=== PATIENT | male | born 1950 | race Caucasian/White ===

== ENCOUNTER 2018-09-09 12:55 | Emergency (ER) | payer MEDICARE, OTHER ==
[~2018-09-09] VITALS: Ht 182.9 cm; Wt 88.5 kg
[2018-09-09] MEDS ORDERED: DONNATAL 5ml ORAL Elix (BELLADONNA ALK-PHENOBARB) PO ONE (14:45)
[2018-09-09] MEDS ORDERED: ALUM & MAG HYDROX-SIMETH LIQ(MAALOX) 30 ML PO ONE (14:45)
[2018-09-09] MEDS ORDERED: LIDOCAINE VISCOUS 2% 15ML UD PO ONE (14:45)
[2018-09-09 14:49] LABS: Basophils # (auto) 0 uL; Eosinophils # (auto) 0.3 uL; Hemoglobin 10.1 g/dL (13.5-17.5); Lymphocytes # (auto) 0.8 uL; Monocytes % (auto) 8.4 % (0.0-12.0); Nucleated Red Blood Cells % 0.1 %
[2018-09-09 14:51] LABS: Basophils % (auto) 0.4 % (0.0-2.0); Eosinophils % (auto) 3.4 % (0.0-7.0); Lymphocytes % (auto) 10.9 % (10.0-50.0); Mean Corpuscular Hemoglobin 40.1 pg (28.0-32.0); Mean Corpuscular Hgb Conc. 34.9 g/dL (32.0-36.0); Mean Corpuscular Volume 114.7 fL (80.0-100.0); Monocytes # (auto) 0.6 uL; Neutrophils # (auto) 5.9 uL; Neutrophils % (auto) 76.9 % (37.0-80.0); Platelet Count (auto) 174 10^3/uL (140-450); Red Blood Cells 2.53 10^6/uL (4.5-5.90); Red Cell Distribution Width 14.6 % (11.8-14.3); White Blood Cell 7.7 10^3/uL (4.4-10.8)
[2018-09-09 15:07] LABS: Alanine Aminotransferase 38 U/L (16-61); Albumin 2.7 g/dL (3.4-5.0); Anion Gap 9 (5-15); Aspartate Aminotransferase 69 U/L (15-37); BUN/Creatinine Ratio 21.6; Blood Urea Nitrogen 42 mg/dL (7-18); Calcium 7.8 mg/dL (8.5-10.1); Carbon Dioxide 22 mmol/L (21-32); Chloride 102 mmol/L (98-107); GFR African American 45 mL/min; GFR Non-African American 37 mL/min; Glucose 111 mg/dL (74-106); Potassium 4.5 mmol/L (3.5-5.1); Sodium 133 mmol/L (136-145)
[2018-09-09 15:12] LABS: Alkaline Phosphatase 207 U/L (45-117); Total Protein 6.9 g/dL (6.4-8.2)
[2018-09-09 16:36] VITALS: BP 130/77
== END 2018-09-09 17:11 | disposition home or self-care (01) ==
LOC: ER 12:55 → EDBD 12:55 → ER 17:11
DX: K74.60 Unspecified cirrhosis of liver (principal); R07.89 Other chest pain; F17.210 Nicotine dependence, cigarettes, uncomplicated
CPT/HCPCS: 36415; 74176; 80053; 83880; 84484; 85025; 93005

== ENCOUNTER 2019-07-10 18:05 | Inpatient (IN) | payer MEDICARE, MEDICAID ==
[~2019-07-10] VITALS: Ht 182.9 cm; Wt 88.0 kg
[2019-07-10 19:07] LABS: Basophils # (auto) 0.1 uL; Basophils % (auto) 2.1 % (0.0-2.0); Eosinophils # (auto) 0.5 uL; Eosinophils % (auto) 10.7 % (0.0-7.0); Hematocrit 27.7 % (41.0-53.0); Hemoglobin 9.8 g/dL (13.5-17.5); Lymphocytes # (auto) 0.9 uL; Lymphocytes % (auto) 18.7 % (10.0-50.0); Mean Corpuscular Hemoglobin 38.2 pg (28.0-32.0); Mean Corpuscular Hgb Conc. 35.5 g/dL (32.0-36.0); Mean Corpuscular Volume 107.5 fL (80.0-100.0); Monocytes # (auto) 0.6 uL; Monocytes % (auto) 12.3 % (0.0-12.0); Neutrophils # (auto) 2.7 uL; Neutrophils % (auto) 56.2 % (37.0-80.0); Platelet Count (auto) 169 10^3/uL (140-450); Red Blood Cells 2.58 10^6/uL (4.5-5.90); Red Cell Distribution Width 13.2 % (11.8-14.3); White Blood Cell 4.8 10^3/uL (4.4-10.8)
[2019-07-10 19:23] LABS: Albumin 2.7 g/dL (3.4-5.0); BUN/Creatinine Ratio 16.5; Calcium 7.8 mg/dL (8.5-10.1); Magnesium 1.7 mg/dL (1.6-2.6); Potassium 3.3 mmol/L (3.5-5.1)
[2019-07-10 19:24] LABS: INR 1.17 (0.9-1.15); Partial Thromboplastin Time 26.2 sec (23.64-32.05)
[2019-07-10 19:31] LABS: Bilirubin, Total 1.2 mg/dL (0.2-1.0); Total Protein 6.5 g/dL (6.4-8.2)
[2019-07-10] MEDS ORDERED: ASPirin 325 MG TAB PO ONE (20:45)
[2019-07-10] MEDS ORDERED: ATORVASTATIN 20 MG TAB PO ONE (21:30)
[2019-07-10] MEDS ORDERED: ALBUTEROL SULF 2.5 MG/0.5ML(0.5%) NEB SOLN NEB PRN (21:30)
[2019-07-10] MEDS ORDERED: ONDANSETRON HCL 4 MG/2 ML VIAL IV PRN (21:30)
[2019-07-10] MEDS ORDERED: IOHEXOL 350 MG/ML 100ML IJ ONE ×2 (21:37→21:41)
[2019-07-10 21:47] VITALS: BP 149/96
--- NOTE | 2019-07-10 21:57 | NUR ---
Respiratory note: NO PRN TX GIVEN AT THIS TIME, NOT INDICATED. NO SOB NOTED. SPO2 95% ON RA, HR 73, RR 16.
[2019-07-10] MEDS ORDERED: MORPHINE SULF INJ 2 MG/ML SYRINGE 1ML IV PRN (22:00)
[2019-07-10] MEDS ORDERED: NITROGLYCERIN 0.4 MG SL TAB SL PRN (22:00)
[2019-07-10] MEDS ORDERED: POTASSIUM CHL 20 Meq TABLET PO SCH (22:00)
[2019-07-10] MEDS ORDERED: FUROSEMIDE 20 MG/2 ML VIAL IV SCH (22:00)
[2019-07-10] MEDS: ATORVASTATIN 20 MG TAB PO SCH (23:24)
[2019-07-10] MEDS: CARVEDILOL 3.125 MG TAB PO SCH (23:24)
[2019-07-10] MEDS: FAMOTIDINE 20 MG TAB PO SCH (23:25)
--- NOTE | 2019-07-10 23:42 | NUR ---
Telemetry admit from ER AIME ABDI admitted to Telemetry unit after SBAR received. Patient oriented to Bola solomon RN, west unit, 284 room, B bed, and unit policies regarding patient care and visiting hours. Patient now on continuous telemetry monitoring, tele box #72 and telemetry reading on arrival to unit is sinus rhythm with BBB. Patient placed on bedside oxygen, weighed by bedscale and encouraged to call if they need something. All questions and concerns addressed, patient verbalized understanding.
--- NOTE | 2019-07-10 23:44 | NUR ---
Called lab to confirm troponin lab draw. confirmed.
[2019-07-11] MEDS ORDERED: METO25TA62 PO (00:04)
[2019-07-11] MEDS ORDERED: NAP500T PO (00:04)
[2019-07-11] MEDS ORDERED: ASPI81CH59 PO (00:04)
[2019-07-11] MEDS ORDERED: PRAV20TA3 PO (00:04)
[2019-07-11] MEDS ORDERED: HYDR50TA15 PO (00:04)
--- NOTE | 2019-07-11 00:49 | NUR ---
Patient refused to have bed alarm on. Educated Geovanny on the importance of the bed alarm, and fall precautions. Also educated the risks of not having the bed alarm on. Geovanny verbally acknowledge education given and still refused to have bed alarm on. Will continue to monitor patient.
[2019-07-11 03:50] VITALS: BP 151/87
[2019-07-11 05:00] VITALS: BP 133/74
[2019-07-11 06:24] LABS: Albumin 2.7 g/dL (3.4-5.0); Calcium 8.1 mg/dL (8.5-10.1); Potassium 3.7 mmol/L (3.5-5.1)
[2019-07-11 06:30] LABS: BUN/Creatinine Ratio 15.7; Bilirubin, Total 1.5 mg/dL (0.2-1.0); Total Protein 6.6 g/dL (6.4-8.2)
[2019-07-11 06:31] LABS: Basophils # (auto) 0.1 uL; Basophils % (auto) 1.6 % (0.0-2.0); Eosinophils # (auto) 0.5 uL; Eosinophils % (auto) 11.2 % (0.0-7.0); Hematocrit 27.6 % (41.0-53.0); Hemoglobin 9.9 g/dL (13.5-17.5); Lymphocytes # (auto) 1.1 uL; Lymphocytes % (auto) 23.8 % (10.0-50.0); Mean Corpuscular Hemoglobin 37.9 pg (28.0-32.0); Mean Corpuscular Hgb Conc. 35.8 g/dL (32.0-36.0); Mean Corpuscular Volume 105.9 fL (80.0-100.0); Monocytes # (auto) 0.5 uL; Monocytes % (auto) 12.2 % (0.0-12.0); Neutrophils # (auto) 2.3 uL; Neutrophils % (auto) 51.2 % (37.0-80.0); Nucleated Red Blood Cells % 0.2 %; Platelet Count (auto) 173 10^3/uL (140-450); Red Blood Cells 2.61 10^6/uL (4.5-5.90); Red Cell Distribution Width 13.3 % (11.8-14.3); White Blood Cell 4.5 10^3/uL (4.4-10.8)
[2019-07-11 06:35] LABS: Cholesterol 104 mg/dL (< 200); HDL Cholesterol 21 mg/dL (40-59); LDL Cholesterol 72 mg/dL (< 100); Triglycerides 107 mg/dL (< 150)
--- NOTE | 2019-07-11 07:30 | NUR ---
Opening Shift Note Assumed care of patient, awake and alert. No S/S of distress/SOB or pain. Instructed on POC and to call for assist PRN, will continue to monitor for changes Q1hr and PRN.
[2019-07-11 08:44] VITALS: BP 146/92
--- NOTE | 2019-07-11 09:26 | NUR ---
PT ASSESSED FOR PRN HHN TX. PT IS ON ROOM AIR, SPO2 92%, HR 77, RR18. NO S/S OF RESPIRATORY DISTRESS. PT AWARE TO HAVE RT PAGE DIF TX NEEDED. WILL CONTINUE TO MONITOR.
[2019-07-11] MEDS: FAMOTIDINE 20 MG TAB PO SCH ×2 (09:44→22:11)
[2019-07-11] MEDS: ASPirin 81 mg TAB PO SCH (09:44)
[2019-07-11] MEDS: FUROSEMIDE 40 MG TAB PO SCH (09:45)
[2019-07-11] MEDS: CARVEDILOL 3.125 MG TAB PO SCH ×2 (09:45→22:11)
[2019-07-11 12:44] VITALS: BP 148/79
--- NOTE | 2019-07-11 14:34 | NUR ---
DR LUNA IS AWARE OF PT'S FEW BEATS OF P WAVES ONLY.
--- NOTE | 2019-07-11 16:00 | NUR ---
PRE POST BEDSIDE SPIROMETRY DONE. DR DONOVAN PRESENTED WITH RESULTS. RESULTS ALSO IN CHART.
[2019-07-11 17:00] VITALS: BP 136/92
[2019-07-11] MEDS: ALBUTEROL SULF 2.5 MG/0.5ML(0.5%) NEB SOLN NEB SCH ×2 (19:04→23:33)
--- NOTE | 2019-07-11 19:31 | NUR ---
REPORT GIVEN TO NOC RN. Patient awake and aleRT. No S/S of distress/SOB or pain. PT IS AWARE OF NPO AT MIDNIGHT ORDER. I.S. AT BEDSIDE.
[2019-07-11 22:00] VITALS: BP 143/92
[2019-07-11] MEDS: ATORVASTATIN 20 MG TAB PO SCH (22:11)
[2019-07-11] MEDS: predniSONE 20 MG TAB PO SCH (22:11)
[2019-07-12] MEDS: TEMAZEPAM 15 MG CAP PO PRN (00:26)
[2019-07-12 05:19] VITALS: BP 139/86
[2019-07-12] MEDS ORDERED: SODIUM CHLORIDE 0.9 % NEB SOLN 3ML NEB ONE ×2 (05:27→12:49)
[2019-07-12] MEDS: ALBUTEROL SULF 2.5 MG/0.5ML(0.5%) NEB SOLN NEB SCH ×3 (06:41→19:40)
--- NOTE | 2019-07-12 07:30 | NUR ---
Opening Shift Note Assuming care of patient at this time. Patient is awake and alert. Patient denies pain. Patient shows no signs or symptoms of distress or shortness of breath. Patient is currently sitting in a chair at the bedside of his roommate. Instructed patient on the plan of care for today and to call for assistance as needed. Patient aware of upcoming procedures today and NPO status. Call light at bedside. Will continue to round hourly and as needed.
--- NOTE | 2019-07-12 07:30 | NUR ---
CLOSING SHIFT NOTE Endorsed care of patient to day shift, CAROL Valdez.
[2019-07-12 08:00] VITALS: BP 150/80
--- NOTE | 2019-07-12 10:23 | NUR ---
Call to Nuclear Medicine Patient is downstairs for procedure. One IV is fine per Avinash. Awaiting patient's return.
[2019-07-12] MEDS: ASPirin 81 mg TAB PO SCH (12:10)
[2019-07-12] MEDS: FUROSEMIDE 40 MG TAB PO SCH (12:11)
[2019-07-12] MEDS: predniSONE 20 MG TAB PO SCH ×2 (12:11→21:46)
[2019-07-12] MEDS: FAMOTIDINE 20 MG TAB PO SCH ×2 (12:11→21:46)
[2019-07-12] MEDS: CARVEDILOL 3.125 MG TAB PO SCH ×2 (12:14→21:51)
[2019-07-12 13:00] VITALS: BP 158/94
--- NOTE | 2019-07-12 15:30 | NUR ---
Nuclear Medicine Patient has had first part of stress test and will have second part tomorrow. No distress noted.
[2019-07-12 16:00] VITALS: BP 157/90
--- NOTE | 2019-07-12 19:03 | NUR ---
Closing Shift Note Patient is resting in bed. Patient shows no signs or symptoms of distress. Will endorse care to the mine shifter RN.
--- NOTE | 2019-07-12 19:43 | NUR ---
RT NOTE PT WAS SEEN BY RT FOR HHN TX. PT TOLERATES WELL VIA MOUTHPIECE. NO ADVERSE REACTION NOTED. CONT ORDERED Addendum: 07/12/19 at 1945 by Scarlett Mcmanus RT Amended: Links added.
[2019-07-12] MEDS: ATORVASTATIN 20 MG TAB PO SCH (21:46)
[2019-07-12 22:00] VITALS: BP 138/80
--- NOTE | 2019-07-12 23:30 | NUR ---
Rounds Patient awake and alert. No S/S of distress/SOB or pain. Will continue to monitor changes q1hr and PRN.
[2019-07-13] MEDS: ALBUTEROL SULF 2.5 MG/0.5ML(0.5%) NEB SOLN NEB SCH ×4 (00:14→20:14)
--- NOTE | 2019-07-13 00:24 | NUR ---
RT NOTE PT WAS SEEN BY RT FOR HHN TX. PT TOLERATES WELL VIA MOUTHPIECE. NO ADVERSE REACTION NOTED. CONT ORDERED Addendum: 07/13/19 at 0025 by Scarlett Mcmanus RT Amended: Links added.
[2019-07-13] MEDS: TEMAZEPAM 15 MG CAP PO PRN (00:25)
--- NOTE | 2019-07-13 03:30 | NUR ---
Rounds Patient sleeping. No S/S of distress/SOB or pain. Will continue to monitor changes q1hr and PRN.
[2019-07-13 05:00] VITALS: BP 134/82
--- NOTE | 2019-07-13 07:30 | NUR ---
SHIFT CLOSING NOTE. ENDORSED CARE OF PATIENT TO DAY SHIFT, CAROL ADAMS.
--- NOTE | 2019-07-13 07:30 | NUR ---
Opening Shift Note Assuming care of patient at this time. Patient is awake and alert. Patient denies pain. Patient shows no signs or symptoms of distress or shortness of breath. Patient is resting in bed. Bed is locked and lowered, with side rails up x2. Instructed patient on the plan of care for today and to call for assistance as needed. Patient aware of upcoming stress test (pt. 2) today and NPO status. Call light at bedside. Will continue to round hourly and as needed.
--- NOTE | 2019-07-13 07:30 | NUR ---
Closing Shift Note Patient is resting in bed. Patient shows no signs or symptoms of distress. Will endorse care to the mine shifter CAROL. Addendum: 07/13/19 at 1918 by BRYAN FELIX RN RN This note was timed incorrectly. Closing note for 1918.
[2019-07-13] MEDS ORDERED: ADENOSINE 75 MG in GIVE UN-DILUTED 0 ML IV STA (08:22)
[2019-07-13 09:00] VITALS: BP 143/84
[2019-07-13] MEDS ORDERED: FURO40TA4 PO (11:02)
[2019-07-13] MEDS ORDERED: CAR3125T PO (11:02)
[2019-07-13] MEDS ORDERED: ATOR20TA50 PO (11:02)
[2019-07-13] MEDS ORDERED: LISI-646 PO (11:02)
[2019-07-13] MEDS ORDERED: ALBUAER3 IN (11:03)
[2019-07-13] MEDS: predniSONE 20 MG TAB PO SCH ×2 (11:10→22:17)
[2019-07-13] MEDS: ASPirin 81 mg TAB PO SCH (11:10)
[2019-07-13] MEDS: FAMOTIDINE 20 MG TAB PO SCH ×2 (11:11→22:16)
[2019-07-13] MEDS: FUROSEMIDE 40 MG TAB PO SCH (11:11)
[2019-07-13] MEDS: CARVEDILOL 3.125 MG TAB PO SCH ×3 (11:12→22:20)
[2019-07-13 13:00] VITALS: BP 139/74
--- NOTE | 2019-07-13 16:20 | NUR ---
Page to Dr. Quintana Page to Dr. Quintana regarding stress test results. Awaiting callback.
--- NOTE | 2019-07-13 16:25 | NUR ---
Call back from Dr. Dr. Quintana called at this time. Notified of stress tests results. wants to hold discharge. Will notify patient.
[2019-07-13 17:00] VITALS: BP 137/93
--- NOTE | 2019-07-13 17:45 | NUR ---
Re: Discharge Cancelled Per Dr. Quintana, discharge will be held. Per Dr. Quintana notes, heart cath on tuesday.
--- NOTE | 2019-07-13 18:15 | NUR ---
Pulmonary Consult Dr. Hudson at bedside at this time. All questions and concerns addressed with patient and this RN. Patient is clear for planned procedure on Tuesday from a pulmonary standpoint.
--- NOTE | 2019-07-13 19:18 | NUR ---
Closing Shift Note Patient is resting in bed. Patient shows no signs or symptoms of distress. Will endorse care to the night shift supervisor RN.
[2019-07-13 22:00] VITALS: BP 138/83
[2019-07-13] MEDS: ATORVASTATIN 20 MG TAB PO SCH (22:16)
[2019-07-13 22:31] VITALS: BP 138/83
--- NOTE | 2019-07-14 | NUR ---
Rounds Patient awake and alert. No S/S of distress/SOB or pain. Will continue to monitor changes q1hr and PRN.
[2019-07-14] MEDS: ALBUTEROL SULF 2.5 MG/0.5ML(0.5%) NEB SOLN NEB SCH ×5 (00:03→23:47)
[2019-07-14] MEDS: TEMAZEPAM 15 MG CAP PO PRN (00:13)
--- NOTE | 2019-07-14 04:16 | NUR ---
Rounds Patient sleeping. No S/S of distress/SOB or pain. Will continue to monitor changes q1hr and PRN.
[2019-07-14 05:35] VITALS: BP 15/92
--- NOTE | 2019-07-14 07:15 | NUR ---
Opening Shift Note Report received and assumed care of patient, awake and alert. No S/S of distress/SOB or pain. Instructed on POC,Nursing routines, call light within reach patient reminded instructed to call for assistance, PRN,patient verbalized understanding, will continue to monitor for changes Q1hr and PRN.
--- NOTE | 2019-07-14 07:30 | NUR ---
SHIFT CLOSING NOTE. ENDORSED CARE OF PATIENT TO DAY SHIFT, CAROL HENDERSON.
[2019-07-14 09:05] VITALS: BP 160/94
[2019-07-14] MEDS: FAMOTIDINE 20 MG TAB PO SCH ×2 (10:23→22:16)
[2019-07-14] MEDS: predniSONE 20 MG TAB PO SCH ×2 (10:23→22:15)
[2019-07-14] MEDS: ASPirin 81 mg TAB PO SCH (10:23)
[2019-07-14] MEDS: CARVEDILOL 3.125 MG TAB PO SCH ×2 (10:24→22:00)
[2019-07-14] MEDS: FUROSEMIDE 40 MG TAB PO SCH (10:25)
--- NOTE | 2019-07-14 10:40 | NUR ---
MD VISIT DR. EDGE HERE TO SEE AND EXAMINED PATIENT.
[2019-07-14 13:10] VITALS: BP 154/92
[2019-07-14 16:33] VITALS: BP 162/99
[2019-07-14] MEDS: cloNIDine HCL 0.1 MG TAB PO PRN (17:25)
--- NOTE | 2019-07-14 19:00 | NUR ---
OPENING NOTE Received report from day shift RN. Patient is A&O X's 4 with no s/s of distress. Patient denies SOB or chest pain. Educated patient on POC and to use call light when in need of assistance. Patient verbalized understanding. Bed is in lowest/locked position with side rails up X's 2 and call light is within reach of patient. Will continue care
[2019-07-14] MEDS: ATORVASTATIN 20 MG TAB PO SCH (22:15)
[2019-07-14 22:17] VITALS: BP 129/78
[2019-07-15] MEDS: TEMAZEPAM 15 MG CAP PO PRN ×2 (00:05→23:54)
[2019-07-15 05:32] VITALS: BP 136/74
[2019-07-15] MEDS: ALBUTEROL SULF 2.5 MG/0.5ML(0.5%) NEB SOLN NEB SCH ×3 (06:42→18:29)
[2019-07-15] MEDS ORDERED: OMNIPAQUE ORAL SOLN 500ml 12mg/ml PO ONE ×2 (07:23→13:10)
--- NOTE | 2019-07-15 08:00 | NUR ---
Opening Shift Note Assumed care of patient, awake, alert and oriented X4. No S/S of distress/SOB or pain. Tele# 72, sinus rhythm @ 66 bpm. IV to left antecubital leaking, removed with clean technique, angio cath intact. Right wrist 22 gauge, patent and saline locked. Instructed on POC and to call for assist PRN, verbalized understanding. Bed locked, in lowest position, call light within reach, will continue to monitor for changes Q1hr and PRN.
[2019-07-15 08:09] LABS: % Iron Saturation 15.8 % (20-55)
[2019-07-15 09:00] VITALS: BP 168/97
[2019-07-15] MEDS ORDERED: IOHEXOL 300 MG/ML 100ML BOTTLE IJ ONE ×2 (09:07→09:52)
[2019-07-15] MEDS: cloNIDine HCL 0.1 MG TAB PO PRN (09:08)
--- NOTE | 2019-07-15 09:35 | NUR ---
Patient taken to radiology for abdominal/pelvic CT via wheelchair, no distress noted.
--- NOTE | 2019-07-15 09:40 | NUR ---
IV removal IV DC'd to right wrist with clean sterile technique, catheter fully intact. Pressure dressing applied to site. Patient tolerated well. Warm compress in place.
--- NOTE | 2019-07-15 09:45 | NUR ---
Patient returned from radiology via wheelchair. Per flavio Hutchins, patient's right wrist IV was patent when patient taken down but when IV contrast was administered, the IV site began to swell. Per Cuong, contrast extravasation protocol began. Upon assessment of right wrist, site is swollen with good circulation. Warm compress in place and patient educated on signs and symptoms, verbalized understanding.
--- NOTE | 2019-07-15 10:15 | NUR ---
ROUNDS Dr Griffin at bedside for rounds. Informed patient has no IV access at this time and CT was not completed due to contrast extravasation to right wrist. Informed patient is a hard stick. New orders received for a midline. Informed Jb, house manager, verbalized he has already called the on-call PICC nurse. Updated patient on plan of care, verbalized understanding.
--- NOTE | 2019-07-15 12:10 | NUR ---
MIDLINE Midline nurse at bedside for midline placement.
--- NOTE | 2019-07-15 12:25 | NUR ---
Midline Placement: Patient educated on need for midline placement. All risks and benefits explained and all questions and concerns addresses prior to procedure. 18g/10cm midline inserted via left basilic vein using Ultrasound. Sterile technique utilized. Blood return obtained from the lumen and flushed easily with NS using proper technique. Midline secured with saline lock; biodisc and occlusive dressing applied. Primary RN notified.
--- NOTE | 2019-07-15 12:25 | NUR ---
MIDLINE Midline placed to right upper, inner arm by midline nurse.
[2019-07-15 13:02] VITALS: BP 151/85
[2019-07-15] MEDS: ASPirin 81 mg TAB PO SCH (13:54)
[2019-07-15] MEDS: FAMOTIDINE 20 MG TAB PO SCH ×2 (13:54→21:43)
[2019-07-15] MEDS: predniSONE 20 MG TAB PO SCH ×2 (13:54→21:43)
[2019-07-15] MEDS: SODIUM CHLORIDE 0.9% 1,000 ML IV SCH ×2 (13:55→18:14)
[2019-07-15] MEDS: FUROSEMIDE 40 MG TAB PO SCH (14:00)
[2019-07-15] MEDS: CARVEDILOL 3.125 MG TAB PO SCH ×2 (14:01→21:43)
[2019-07-15 16:49] VITALS: BP 150/84
[2019-07-15] MEDS: FERROUS SULFATE 325 MG TAB PO SCH (17:54)
--- NOTE | 2019-07-15 19:01 | NUR ---
Care endorsed to CAROL Dunaway, night nurse.
--- NOTE | 2019-07-15 19:10 | NUR ---
OPENING NOTE Received report from day shift RN. Patient is A&O X's 4 with no s/s of distress. Educated patient on POC and instructed patient not to eat or drink anything after midnight for the left heart cath tomorrow and to use call light when in need of assistance. Patient verbalized understanding. Patient's right hand still remains swollen with good circulation and adequate perfusion. Patient reports no numbness/tingling or pain. Educated patient on s/s and to keep hand elevated. Provided patient with warm and cold compresses for the hand. Bed is in lowest/locked position with side rails up X's 2 and call light is within reach of patient. NS is being infused at 125ml/hr via right upper arm midline. Will continue care.
[2019-07-15] MEDS: ATORVASTATIN 20 MG TAB PO SCH (21:43)
[2019-07-16] MEDS: ALBUTEROL SULF 2.5 MG/0.5ML(0.5%) NEB SOLN NEB SCH ×4 (00:33→18:26)
--- NOTE | 2019-07-16 00:33 | NUR ---
Respiratory note: PT CURRENTLY ON RA AT THIS TIME. NO RESP DISTRESS NOTED. PT REFUSING BREATHING TX AT THIS TIME AND STATE HE SAID HE WANTS TO SLEEP. NO TX GIVEN AT THIS TIME. SPO2 ON RA 94%, HR 75, RR 18. BS CLR/DIM T/O.
[2019-07-16] MEDS: SODIUM CHLORIDE 0.9% 1,000 ML IV SCH ×2 (03:35→12:03)
[2019-07-16 05:00] VITALS: BP 158/86
--- NOTE | 2019-07-16 05:56 | NUR ---
RIGHT ARM Right arm and hand still are swollen. Demonstrates adequate tissue perfusion. Patient reports no tingling/numbness or pain. Ice and warm compresses at bedside.
[2019-07-16 06:48] LABS: INR 1.09 (0.9-1.15); Partial Thromboplastin Time 23.9 sec (23.64-32.05)
[2019-07-16 06:50] LABS: Albumin 2.8 g/dL (3.4-5.0); Calcium 8.5 mg/dL (8.5-10.1); Potassium 4.2 mmol/L (3.5-5.1)
[2019-07-16 06:52] LABS: Bilirubin, Total 0.8 mg/dL (0.2-1.0); Total Protein 7.3 g/dL (6.4-8.2)
[2019-07-16 07:30] LABS: Basophils # (auto) 0.1 uL; Eosinophils # (auto) 0 uL; Lymphocytes # (auto) 0.6 uL; Monocytes # (auto) 0.3 uL; Nucleated Red Blood Cells % 0.1 %; Red Blood Cells 2.64 10^6/uL (4.5-5.90)
[2019-07-16 07:32] LABS: Basophils % (auto) 1.2 % (0.0-2.0); Eosinophils % (auto) 0.1 % (0.0-7.0); Hematocrit 29.9 % (41.0-53.0); Hemoglobin 11.6 g/dL (13.5-17.5); Lymphocytes % (auto) 8.8 % (10.0-50.0); Mean Corpuscular Hemoglobin 43.9 pg (28.0-32.0); Mean Corpuscular Volume 113.2 fL (80.0-100.0); Monocytes % (auto) 4.8 % (0.0-12.0); Neutrophils # (auto) 5.8 uL; Neutrophils % (auto) 85.1 % (37.0-80.0); Platelet Count (auto) 268 10^3/uL (140-450); White Blood Cell 6.8 10^3/uL (4.4-10.8)
[2019-07-16 07:41] LABS: Mean Corpuscular Hgb Conc. 38.7 g/dL (32.0-36.0)
[2019-07-16 08:10] LABS: Immunoglobulin G, Serum 2104 mg/dL (700-1600)
[2019-07-16 09:17] VITALS: BP 149/75
[2019-07-16] MEDS: ASPirin 81 mg TAB PO SCH (10:17)
[2019-07-16] MEDS: predniSONE 20 MG TAB PO SCH ×2 (10:17→21:04)
[2019-07-16] MEDS: FERROUS SULFATE 325 MG TAB PO SCH ×2 (10:17→18:10)
[2019-07-16] MEDS: CARVEDILOL 3.125 MG TAB PO SCH ×2 (10:18→21:03)
[2019-07-16] MEDS: FUROSEMIDE 40 MG TAB PO SCH (10:18)
[2019-07-16] MEDS: FAMOTIDINE 20 MG TAB PO SCH ×2 (10:18→21:04)
[2019-07-16 11:24] LABS: Hepatitis B Surface Antibody Negative
[2019-07-16 11:27] LABS: Ferritin 260.7 ng/mL (10-322)
[2019-07-16 11:28] LABS: Folate (Folic Acid) 5.01 ng/mL (5.38-24)
[2019-07-16 11:39] LABS: Folate (Folic Acid) 7.47 ng/mL (5.38-24)
[2019-07-16 12:54] LABS: Hepatitis B Core Total AB Negative; Hepatitis B Surface Antigen Negative (Negative)
[2019-07-16 12:55] LABS: Hepatitis C Antibody Negative (Negative)
--- NOTE | 2019-07-16 13:12 | NUR ---
[facility] [place] PATIENT OFF FLOOR FOR LEFT HEART CATH.
[2019-07-16 13:17] VITALS: BP 164/85
[2019-07-16] MEDS ORDERED: fentaNYL CITRATE 100 MCG/2 ML VL ONE (13:56)
[2019-07-16] MEDS ORDERED: SODIUM CHL 0.9% 0 ML ONE (13:56)
[2019-07-16] MEDS ORDERED: MIDAZOLAM HCL 1MG/1ML-2 ML VIAL ONE (13:56)
[2019-07-16] MEDS ORDERED: LIDOCAINE 2%HCL (LOCAL ANESTH.) INJ 20ML MDV ONE (13:56)
[2019-07-16] MEDS ORDERED: ANGIOMAX 250 MG VIAL IV ONE (13:56)
[2019-07-16] MEDS ORDERED: IOHEXOL 350 MG/ML 100ML IJ ONE (13:57)
--- NOTE | 2019-07-16 15:36 | NUR ---
NUTRITION ASSESSMENT NOTES Please refer to link notes of nutrition screen form filed under the intervention section of the plan of care for further details. Est. Needs: 1750 kcal to 2200 kcal (20-25 kcal/kgBW), 70 gms to 88 gms pro (0.8-1.0 gms/kgBW). Will continue to monitor pertinent labs and reassess nutrient need prn Thank you. Addendum: 07/16/19 at [address] Amended: Links added.
[2019-07-16 17:09] VITALS: BP 155/76
[2019-07-16] MEDS ORDERED: SODIUM CHLORIDE 0.9% 1,000 ML IV SCH (17:45)
--- NOTE | 2019-07-16 20:10 | NUR ---
RECEIVED PATIENT IN BED, AAOX4. NO DISTRESS NOTED. INTRODUCED MYSELF TO THE PATIENT. NO SOB, PAIN NOTED. POCS DISCUSSED WITH PATIENT AND SHOWED UNDERSTANDING. BED KEPT ON LOWEST POSITION. SIDE RAILS UP. CALL LIGHT/TABLE IN REACH. KEPT COMFORTABLE.
[2019-07-16] MEDS: TEMAZEPAM 15 MG CAP PO PRN (21:03)
[2019-07-16] MEDS: ATORVASTATIN 20 MG TAB PO SCH (21:04)
[2019-07-16 22:03] VITALS: BP 131/81
--- NOTE | 2019-07-17 00:30 | NUR ---
I WAS TOLD THAT PATIENT ASKED FOR A BREATHING TREATMENT. CALLED RT, RE: BREATHING TREATMENT. WILL FOLLOW UP.
--- NOTE | 2019-07-17 00:40 | NUR ---
VERIFIED WITH PATIENT IF HE RECEIVED HIS BREATHING TREATMENT AND PATIENT STARTED YELLING AT ME AND TOLD ME TO GET OUT OF HIS ROOM. HE SAID, HE WOKE UP IN A BAD MOOD WHEN I TRIED TO WAKE HIM UP EARLIER THIS EVENING FOR A ROUTINE ASSESSMENT. ADVISED PATIENT THAT I WASN'T BEING LOUD AT ALL AND MY INTENTION WAS JUST TO MAKE SURE HE WAS OKAY AT THAT TIME. WILL NOTIFY CHARGE NURSE OF THE SITUATION.
[2019-07-17] MEDS: ALBUTEROL SULF 2.5 MG/0.5ML(0.5%) NEB SOLN NEB SCH ×3 (00:53→11:40)
--- NOTE | 2019-07-17 01:00 | NUR ---
PATIENT REFUSED ME TO BE AROUND HIS ROOM. MADE CHARGE NURSE AWARE. WILL CONTINUE TO MONITOR PATIENT THROUGH A DIFFERENT NURSE.
[2019-07-17 03:34] VITALS: BP 122/68
[2019-07-17 05:00] VITALS: BP 151/90
--- NOTE | 2019-07-17 06:31 | NUR ---
ON BED, ASLEEP. STABLE. NO DISTRESS NOTED. FOR MORE CARE AND MANAGEMENT.
--- NOTE | 2019-07-17 07:20 | NUR ---
Opening Shift Note Assumed care of patient. Patient is awake, alert and and able to make needs known. No S/S of distress/SOB and no complains of pain. Instructed on patient on plan of care, patient verbalized understanding. Patient still NPO at this time. Instructed patient to call for assistance as needed,will continue to monitor.
[2019-07-17] MEDS: predniSONE 20 MG TAB PO SCH (08:20)
[2019-07-17] MEDS: ASPirin 81 mg TAB PO SCH (08:21)
[2019-07-17] MEDS: FUROSEMIDE 40 MG TAB PO SCH (08:21)
[2019-07-17] MEDS: FERROUS SULFATE 325 MG TAB PO SCH (08:22)
[2019-07-17] MEDS: FAMOTIDINE 20 MG TAB PO SCH (08:22)
[2019-07-17] MEDS: CARVEDILOL 3.125 MG TAB PO SCH (08:24)
[2019-07-17] MEDS: cloNIDine HCL 0.1 MG TAB PO PRN (08:27)
--- NOTE | 2019-07-17 08:56 | NUR ---
Progress Note Called Radiology, waiting for Dr. Castro to verify needle biopsy for patient.
[2019-07-17 09:00] VITALS: BP 175/101
--- NOTE | 2019-07-17 09:27 | NUR ---
Progress Note Spoke with Theo from Radiology, patient able to eat breakfast at this time and still able to have needle biopsy.
--- NOTE | 2019-07-17 10:51 | NUR ---
Progress Note Dr. Quintana at bedside. Called to stop IV fluids.
[2019-07-17 13:29] VITALS: BP 156/98
--- NOTE | 2019-07-17 13:49 | NUR ---
Progress Note Patient off the floor for needle biopsy of lymph node.
--- NOTE | 2019-07-17 16:14 | NUR ---
Discharge instructions given as ordered. Encourage to follow up with PMD as instructed. All questions and concerns addressed. Patient verbalized understanding. Medication reconciliation form completed and copy given to patient. Home medications held in Pharmacy returned to patient. IV removed with catheter intact, pressure dressing appliedd. Telemetry unit returned to ICU. Patient taken to vehicle via wheelchair with all personal belongings, accompanied by staff and family member. No distress noted at time of departure.
== END 2019-07-17 16:13 | disposition home or self-care (01) | DRG 280 ==
LOC: EDUNIT# 18:05 → ER 18:05 → EDBD 18:05 → TELE 18:06 → TELE-WESTW 23:29
PROVIDERS: ADMIT Nurse Practitioner; ATTEND Internal Medicine Nephrology
PROC: 4A023N7 Measurement of Cardiac Sampling and Pressure, Left Heart, Percutaneous Approach (ICD-10-PCS; principal; 2019-07-16)
PROC: B2111ZZ Fluoroscopy of Multiple Coronary Arteries using Low Osmolar Contrast (ICD-10-PCS; 2019-07-16)
PROC: B2151ZZ Fluoroscopy of Left Heart using Low Osmolar Contrast (ICD-10-PCS; 2019-07-16)
DX: I21.4 Non-ST elevation (NSTEMI) myocardial infarction (principal); I50.33 Acute on chronic diastolic (congestive) heart failure; J44.1 Chronic obstructive pulmonary disease with (acute) exacerbation; E87.6 Hypokalemia; E03.9 Hypothyroidism, unspecified; I11.0 Hypertensive heart disease with heart failure; D53.9 Nutritional anemia, unspecified; I27.20 Pulmonary hypertension, unspecified; E78.5 Hyperlipidemia, unspecified; F17.210 Nicotine dependence, cigarettes, uncomplicated; I25.10 Atherosclerotic heart disease of native coronary artery without angina pectoris; K74.60 Unspecified cirrhosis of liver; R59.0 Localized enlarged lymph nodes; F10.10 Alcohol abuse, uncomplicated; K80.20 Calculus of gallbladder without cholecystitis without obstruction; I25.2 Old myocardial infarction; Z79.82 Long term (current) use of aspirin; Z91.14 Patient's other noncompliance with medication regimen; Z91.19 Patient's noncompliance with other medical treatment and regimen; Z71.51 Drug abuse counseling and surveillance of drug abuser
CPT/HCPCS: 36415; 71045; 71275; 74177; 76705; 76881; 76942; 78226; 78452; 80053; 80061; 82607; 82728; 82746; 82784; 83010; 83540; 83550; 83615; 83735; 83880; 84443; 84484; 84550; 85025; 85045; 85379; 85610; 85730; 86704; 86706; 86803; 86850; 86880; 86900; 86901; 87340; 93005; 93017; 93306; 93458; 93970; 94010; 94640; 99152; 99153; G0378; J0153; J2250

== ENCOUNTER 2019-07-26 16:09 | Emergency (ER) | payer MEDICARE, OTHER ==
[~2019-07-26] VITALS: Ht 182.9 cm; Wt 88.5 kg
[~2019-07-26 16:09] MED LIST: ALBUAER3 IN; ATOR20TA50 PO; CAR3125T PO; FURO40TA4 PO; LISI-646 PO
[2019-07-26] MEDS ORDERED: IOHEXOL 350 MG/ML 100ML IJ ONE (16:49)
[2019-07-26 18:35] LABS: INR 1.06 (0.9-1.15); Partial Thromboplastin Time 24.8 sec (23.64-32.05)
[2019-07-26 18:38] LABS: Albumin 2.9 g/dL (3.4-5.0); BUN/Creatinine Ratio 21.8; Calcium 8.3 mg/dL (8.5-10.1); Potassium 3.8 mmol/L (3.5-5.1)
[2019-07-26 18:40] LABS: Bilirubin, Total 0.7 mg/dL (0.2-1.0); Total Protein 7.3 g/dL (6.4-8.2)
[2019-07-26 19:05] LABS: Basophils # (auto) 0.1 uL; Basophils % (auto) 1.1 % (0.0-2.0); Eosinophils # (auto) 0.4 uL; Eosinophils % (auto) 3.9 % (0.0-7.0); Hemoglobin 11.9 g/dL (13.5-17.5); Lymphocytes # (auto) 3.3 uL; Lymphocytes % (auto) 30.2 % (10.0-50.0); Mean Corpuscular Hemoglobin 36.2 pg (28.0-32.0); Mean Corpuscular Volume 106.5 fL (80.0-100.0); Monocytes # (auto) 0.9 uL; Monocytes % (auto) 7.9 % (0.0-12.0); Neutrophils # (auto) 6.2 uL; Neutrophils % (auto) 56.9 % (37.0-80.0); Nucleated Red Blood Cells % 0.3 %; Platelet Count (auto) 429 10^3/uL (140-450); Red Blood Cells 3.29 10^6/uL (4.5-5.90); Red Cell Distribution Width 13.1 % (11.8-14.3); White Blood Cell 10.9 10^3/uL (4.4-10.8)
[2019-07-26 21:47] VITALS: BP 101/65
== END 2019-07-26 22:14 | disposition home or self-care (01) ==
LOC: ER 16:12
DX: L76.32 Postprocedural hematoma of skin and subcutaneous tissue following other procedure (principal); K74.60 Unspecified cirrhosis of liver; I50.9 Heart failure, unspecified; F17.210 Nicotine dependence, cigarettes, uncomplicated; Z88.5 Allergy status to narcotic agent; Z79.899 Other long term (current) drug therapy
CPT/HCPCS: 36415; 74178; 76870; 80053; 80320; 85025; 85610; 85730; 99284; Q9967

== ENCOUNTER 2019-08-10 10:34 | Emergency (ER) | payer MEDICARE, OTHER ==
[~2019-08-10] VITALS: Ht 180.3 cm; Wt 72.6 kg
[2019-08-10 10:41] VITALS: BP 113/78
[2019-08-10] MEDS ORDERED: HYDROcodone-ACET 10/325MG TAB PO ONE (11:30)
[2019-08-10] MEDS ORDERED: TETRACAINE HCL 0.5% OPTH(EYE) SOLN 4ML EACHEYE ONE (12:00)
[2019-08-10] MEDS ORDERED: FLUORESCEIN SOD 1 MG TEST STRIP OP ONE (12:00)
[2019-08-10] MEDS ORDERED: CIP03OS LEFTEYE (12:44)
== END 2019-08-10 12:51 | disposition home or self-care (01) ==
LOC: ER 10:34 → EDBD 10:34 → ER 12:51
DX: T15.02XA Foreign body in cornea, left eye, initial encounter (principal); X58.XXXA Exposure to other specified factors, initial encounter; Y93.89 Activity, other specified; Y92.89 Other specified places as the place of occurrence of the external cause; Y99.8 Other external cause status
CPT/HCPCS: 65220

== ENCOUNTER → 2019-09-11 | Outpatient (CLI) | payer MEDICARE, OTHER ==
[~2019-09-11] MED LIST changes: +CIP03OS LEFTEYE; -LISI-646 PO
[2019-09-11 13:18] LABS: % Iron Saturation 78.9 % (20-55)
== END | disposition home or self-care (01) ==
LOC: LAB 11:17
PROVIDERS: ATTEND Internal Medicine Gastroenterology
DX: K74.69 Other cirrhosis of liver (principal); R11.2 Nausea with vomiting, unspecified
CPT/HCPCS: 82390; 83540; 83550; 86038

== ENCOUNTER 2019-11-08 12:53 | Inpatient (IN) | payer MEDICARE, OTHER ==
[~2019-11-08] VITALS: Ht 182.9 cm; Wt 81.8 kg
[2019-11-08 13:46] LABS: Mean Corpuscular Volume 104.7 fL (80.0-100.0)
[2019-11-08 13:48] LABS: Hematocrit 30.1 % (41.0-53.0); Hemoglobin 10.6 g/dL (13.5-17.5); Mean Corpuscular Hemoglobin 36.8 pg (28.0-32.0); Mean Corpuscular Hgb Conc. 35.1 g/dL (32.0-36.0); Platelet Count (auto) 241 10^3/uL (140-450); Red Blood Cells 2.87 10^6/uL (4.5-5.90); Red Cell Distribution Width 13.7 % (11.8-14.3)
[2019-11-08 13:53] LABS: Band Neutrophils % (manual) 0; Basophils % (manual) 0 (0.0-2.0); Blast Cells 0; Metamyelocytes % 0; Myelocytes % 0; Promyelocytes % 0; Reactive Lymphocytes 0
[2019-11-08] MEDS ORDERED: SODIUM CHLORIDE 0.9% 500 ML IV ONE (13:55)
[2019-11-08] MEDS ORDERED: ONDANSETRON HCL 4 MG/2 ML VIAL IV ONE (14:00)
[2019-11-08 14:01] LABS: INR 1.13 (0.9-1.15); Partial Thromboplastin Time 26.2 sec (23.64-32.05)
[2019-11-08 14:03] LABS: Alanine Aminotransferase 44 U/L (16-61); Albumin 3.6 g/dL (3.4-5.0); Anion Gap 8 (5-15); Aspartate Aminotransferase 53 U/L (15-37); BUN/Creatinine Ratio 21.6; Blood Alcohol < 3.0 mg/dL (0-5); Blood Urea Nitrogen 33 mg/dL (7-18); Carbon Dioxide 21 mmol/L (21-32); Chloride 110 mmol/L (98-107); GFR African American 59 mL/min; GFR Non-African American 49 mL/min; Glucose 126 mg/dL (74-106); Potassium 4.4 mmol/L (3.5-5.1); Sodium 139 mmol/L (136-145)
[2019-11-08 14:08] LABS: Alkaline Phosphatase 159 U/L (45-117); Bilirubin, Total 1.1 mg/dL (0.2-1.0); Total Protein 8.8 g/dL (6.4-8.2)
[2019-11-08 14:32] LABS: Eosinophils % (manual) 16 (0-7); Lymphocytes % (manual) 25 (10.0-50.0); Monocytes % (manual) 10 (0-12)
[2019-11-08] MEDS ORDERED: ACETAMINOPHEN 500 MG TAB PO PRN (16:30)
[2019-11-08] MEDS ORDERED: LABETALOL HCL 5 MG/ML ML 20ML VIAL IV PRN (16:30)
[2019-11-08] MEDS ORDERED: ALBUTEROL SULF 2.5 MG/0.5ML(0.5%) NEB SOLN NEB PRN (16:30)
[2019-11-08] MEDS ORDERED: NITROGLYCERIN 0.4 MG SL TAB SL PRN (16:30)
[2019-11-08] MEDS ORDERED: MORPHINE SULF INJ 2 MG/ML SYRINGE 1ML IV PRN (16:30)
[2019-11-08] MEDS ORDERED: LACTULOSE 20Gm/30ML SOLN PO PRN (16:30)
[2019-11-08] MEDS ORDERED: PROMETHAZINE HCL 25 MG/ML 1ML IV PRN (16:30)
[2019-11-08] MEDS ORDERED: DEXTROSE (50%) 50ML SYRG IV PRN (16:30)
[2019-11-08 16:56] LABS: CRP High Sensitivity 0.22 mg/dL (< 0.3)
[2019-11-08] MEDS: ACCU-CHEK COMFORT CURVE STRIP VI SCH ×2 (18:03→22:44)
[2019-11-08] MEDS: SODIUM CHLORIDE 0.9% 1,000 ML IV SCH (18:03)
[2019-11-08] MEDS: InsuLIN REG 1unit/0.01ml Soln (100units/ml) SC SCH ×2 (18:04→22:00)
[2019-11-08] MEDS: CARVEDILOL 3.125 MG TAB PO SCH (18:10)
[2019-11-08] MEDS: ALBUTEROL SULF 2.5 MG/0.5ML(0.5%) NEB SOLN NEB SCH (18:28)
[2019-11-08 19:16] VITALS: BP 108/69
--- NOTE | 2019-11-08 19:55 | NUR ---
Telemetry admit from ER AIME ABDI admitted to Telemetry unit. Patient oriented to Real Hewitt, primary RN, unit, room, bed, and unit policies regarding patient care and visiting hours. Patient now on continuous telemetry monitoring, tele box #32 and telemetry reading on arrival to unit is SR 77. Patient has been weighed by the bedscale and encouraged to call if they need something. Bed is locked in lowest position with call light in reach. All questions and concerns addressed, patient verbalized understanding.
[2019-11-08] MEDS: LORazepam 0.5 MG TAB PO PRN (21:08)
[2019-11-08 21:27] VITALS: BP 135/80
[2019-11-08 22:00] VITALS: BP 135/80
[2019-11-08] MEDS ORDERED: ATORVASTATIN 20 MG TAB PO SCH ×2 (22:00)
[2019-11-08] MEDS: TEMAZEPAM 15 MG CAP PO PRN (22:35)
[2019-11-09] MEDS: ALBUTEROL SULF 2.5 MG/0.5ML(0.5%) NEB SOLN NEB SCH ×4 (00:34→19:21)
[2019-11-09 05:00] VITALS: BP 104/57
[2019-11-09] MEDS: SODIUM CHLORIDE 0.9% 1,000 ML IV SCH ×2 (05:35→11:12)
--- NOTE | 2019-11-09 06:00 | NUR ---
ASSESSMENT The patient reports feeling itchy all over his body. He states that his itchiness started months ago but occasionally worsen. The patient is requesting Benadryl to alleviate the itching. Will page the hospitalist.
[2019-11-09] MEDS: InsuLIN REG 1unit/0.01ml Soln (100units/ml) SC SCH ×4 (06:47→22:00)
[2019-11-09] MEDS: ACCU-CHEK COMFORT CURVE STRIP VI SCH ×4 (06:48→22:44)
--- NOTE | 2019-11-09 07:05 | NUR ---
CLOSING NOTE Patient is resting comfortably in bed. States that his itchiness has improved but still requested Benadryl. Will endorse PRN Benadryl to day shift.
[2019-11-09 07:37] LABS: Albumin 3.1 g/dL (3.4-5.0); Calcium 8.8 mg/dL (8.5-10.1); Potassium 4.7 mmol/L (3.5-5.1)
[2019-11-09 07:41] LABS: BUN/Creatinine Ratio 28.9; Total Protein 7.1 g/dL (6.4-8.2)
--- NOTE | 2019-11-09 07:48 | NUR ---
Opening Shift Note Assumed care of patient, awake and alert. No S/S of distress/SOB or pain. Instructed on POC and to call for assist PRN, will continue to monitor for changes Q1hr and PRN.
[2019-11-09] MEDS: CARVEDILOL 3.125 MG TAB PO SCH ×2 (08:52→22:15)
[2019-11-09 09:00] VITALS: BP 114/66
[2019-11-09] MEDS: ASPirin 81 mg TAB PO SCH (09:21)
[2019-11-09] MEDS ORDERED: ENOXAPARIN SOD 40 MG/0.4 ML SYRINGE SC SCH (10:00)
[2019-11-09] MEDS ORDERED: LEVOFLOXACIN 500MG 100 ML IV SCH (10:00)
[2019-11-09] MEDS ORDERED: ASPirin 81 mg TAB PO SCH (10:00)
[2019-11-09] MEDS: LORazepam 0.5 MG TAB PO PRN ×2 (10:57→20:51)
--- NOTE | 2019-11-09 11:30 | NUR ---
IV insertion IV access obtained, via clean sterile technique by inserting 20 gauge catheter at left forearm after 2 attempt(s). IV secured properly. No trauma to site. Patient tolerated well.
--- NOTE | 2019-11-09 12:30 | NUR ---
Supervisor Of Officials Rounding Dr. Zavala at bedside. Verbal orders received and will be entered in eMAR.
[2019-11-09 13:00] VITALS: BP 105/62
[2019-11-09] MEDS ORDERED: CLOPIDOGREL BISULFATE 75 MG TAB PO ONE ×2 (13:00)
[2019-11-09] MEDS ORDERED: diphenhdrAMINE HCL 25 MG CAP PO ONE (16:15)
[2019-11-09] MEDS ORDERED: FUROSEMIDE 20 MG TAB PO ONE (16:15)
[2019-11-09] MEDS ORDERED: ENOXAPARIN SOD 40 MG/0.4 ML SYRINGE SC ONE (16:30)
[2019-11-09 16:35] VITALS: BP 99/62
--- NOTE | 2019-11-09 19:40 | NUR ---
4 H YOUTH DEVELOPMENT SPECIALIST ROUNDING Dr. Zavala states that he wants the patient to receive a CTA bilateral lower extremity of the femoral with distal run off to evaluate pseudo aneurysm vs true aneurysm and for peripheral artery disease. He also states that the patient will undergo a peripheral angiogram with Dr. Barr on Tuesday (11/12/19). The patient is to be placed on NS @ 75 MLS/HR for 12 hours prior to procedure. Patient will also be NPO at midnight (11/12/19)
[2019-11-09 22:14] VITALS: BP 110/59
[2019-11-09] MEDS: TEMAZEPAM 15 MG CAP PO PRN (22:16)
[2019-11-09] MEDS: ATORVASTATIN 20 MG TAB PO SCH (22:16)
--- NOTE | 2019-11-09 22:20 | NUR ---
MEDICATION REFUSAL The patient refused administration of insulin for a glucose of 137. Patient has been educated about the medication and the risks associated with medication refusal. Patient verbalized understanding.
[2019-11-10] MEDS: ALBUTEROL SULF 2.5 MG/0.5ML(0.5%) NEB SOLN NEB SCH ×4 (00:34→18:15)
--- NOTE | 2019-11-10 00:34 | NUR ---
Respiratory note: PT REFUSE MED NEB AT THIS TIME
[2019-11-10] MEDS: traMADol HCL 50 MG TAB PO PRN (02:30)
--- NOTE | 2019-11-10 02:32 | NUR ---
ASSESSMENT The patient began to complain about generalized body pain and stated that he was not "feeling good". Patient also c/o abdominal pain and reports that his last BM was two days ago. Will treat with PRN pain medication.
[2019-11-10 05:04] VITALS: BP 107/51
[2019-11-10] MEDS: InsuLIN REG 1unit/0.01ml Soln (100units/ml) SC SCH ×4 (07:00→22:00)
[2019-11-10] MEDS: ACCU-CHEK COMFORT CURVE STRIP VI SCH ×4 (07:41→23:35)
[2019-11-10 09:00] VITALS: BP 104/61
[2019-11-10 09:46] LABS: Calcium 9.4 mg/dL (8.5-10.1)
[2019-11-10 09:51] LABS: BUN/Creatinine Ratio 27.3
[2019-11-10] MEDS ORDERED: CLOPIDOGREL BISULFATE 75 MG TAB PO SCH (10:00)
[2019-11-10] MEDS: ASPirin 81 mg TAB PO SCH (11:12)
[2019-11-10] MEDS: FUROSEMIDE 20 MG TAB PO SCH (11:13)
[2019-11-10] MEDS: CLOPIDOGREL BISULFATE 75 MG TAB PO SCH (11:13)
[2019-11-10] MEDS: CARVEDILOL 3.125 MG TAB PO SCH ×2 (11:14→22:00)
[2019-11-10] MEDS: ENOXAPARIN SOD 40 MG/0.4 ML SYRINGE SC SCH (11:15)
[2019-11-10] MEDS ORDERED: IOHEXOL 350 MG/ML 100ML IJ ONE (11:20)
[2019-11-10 13:00] VITALS: BP 91/58
--- NOTE | 2019-11-10 14:29 | NUR ---
CALLED PBX AND PAGED DR VAN TO REPORT RESULTS OF CT SCAN. AWAITING CALL BACK.
--- NOTE | 2019-11-10 14:31 | NUR ---
DR VAN CALLED BACK, NOTIFIED MD OF RESULTS OF CT SCAN, MD AWARE AND REPORTS PT IS TO HAVE ANGIOGRAM ON TUESDAY WITH DR PHILLIPS.
--- NOTE | 2019-11-10 15:10 | NUR ---
MOVIE STAR reports pt blood pressure 91/58, hr 68, reassessed bp, bp 99/55, hr 80. Will continue to monitor. Addendum: 11/10/19 at 1524 by JUAN CABAN RN Pt resting in bed, no distress noted.
[2019-11-10 17:00] VITALS: BP 91/56
[2019-11-10] MEDS: SODIUM CHLORIDE 0.9% 1,000 ML IV SCH (18:07)
--- NOTE | 2019-11-10 19:20 | NUR ---
Opening Shift Note Assumed care of patient, awake and alert. No S/S of distress/SOB or pain. The bed is locked in lowest position with call light in reach. Instructed on POC and to call for assist PRN, will continue to monitor for changes Q1hr and PRN.
[2019-11-10] MEDS: LORazepam 0.5 MG TAB PO PRN (21:50)
[2019-11-10 22:00] VITALS: BP 90/52
[2019-11-10] MEDS: ATORVASTATIN 20 MG TAB PO SCH (22:00)
[2019-11-10] MEDS: TEMAZEPAM 15 MG CAP PO PRN (22:35)
[2019-11-11] MEDS: ALBUTEROL SULF 2.5 MG/0.5ML(0.5%) NEB SOLN NEB SCH ×4 (00:16→18:25)
[2019-11-11] MEDS ORDERED: SODIUM CHLORIDE 0.9 % NEB SOLN 3ML NEB ONE (05:25)
[2019-11-11 05:31] VITALS: BP 98/66
[2019-11-11 06:18] LABS: Hematocrit 25.1 % (41.0-53.0); Hemoglobin 8.9 g/dL (13.5-17.5); Mean Corpuscular Hemoglobin 37.8 pg (28.0-32.0); Mean Corpuscular Hgb Conc. 35.6 g/dL (32.0-36.0); Platelet Count (auto) 201 10^3/uL (140-450); Red Blood Cells 2.37 10^6/uL (4.5-5.90); Red Cell Distribution Width 13.4 % (11.8-14.3); White Blood Cell 4.7 10^3/uL (4.4-10.8)
[2019-11-11 06:22] LABS: Band Neutrophils % (manual) 0; Basophils % (manual) 0 (0.0-2.0); Blast Cells 0; Metamyelocytes % 0; Myelocytes % 0; Promyelocytes % 0; Reactive Lymphocytes 0
[2019-11-11 06:38] LABS: BUN/Creatinine Ratio 27.4; Calcium 8.7 mg/dL (8.5-10.1); Potassium 4.8 mmol/L (3.5-5.1)
[2019-11-11] MEDS: ACCU-CHEK COMFORT CURVE STRIP VI SCH ×4 (06:51→21:13)
[2019-11-11] MEDS: InsuLIN REG 1unit/0.01ml Soln (100units/ml) SC SCH ×4 (06:51→21:13)
[2019-11-11 07:22] LABS: Eosinophils % (manual) 21 (0-7); Lymphocytes % (manual) 21 (10.0-50.0); Monocytes % (manual) 11 (0-12)
[2019-11-11 09:00] VITALS: BP 98/57
[2019-11-11] MEDS: CARVEDILOL 3.125 MG TAB PO SCH ×2 (10:40→22:49)
[2019-11-11] MEDS: ASPirin 81 mg TAB PO SCH (10:41)
[2019-11-11] MEDS: FUROSEMIDE 20 MG TAB PO SCH (10:41)
[2019-11-11] MEDS: CLOPIDOGREL BISULFATE 75 MG TAB PO SCH (10:41)
[2019-11-11] MEDS: ENOXAPARIN SOD 40 MG/0.4 ML SYRINGE SC SCH (10:42)
[2019-11-11 13:00] VITALS: BP 91/63
[2019-11-11] MEDS: SODIUM CHLORIDE 0.9% 1,000 ML IV SCH (13:34)
[2019-11-11 14:57] LABS: INR 1.18 (0.9-1.15)
--- NOTE | 2019-11-11 15:00 | NUR ---
CONSENTS AND CHECKLIST PRINTED FOR PERIPHERAL ANGIOGRAM TOMORROW, AND PLACED IN CHART. PT, INR, CHEST X RAY, TYPE AND SCREEN ORDERED. WILL SEND URINALYSIS ONCE PT VOIDS, WILL CONTINUE TO MONITOR.
[2019-11-11] MEDS: LORazepam 0.5 MG TAB PO PRN ×2 (15:07→23:28)
--- NOTE | 2019-11-11 15:33 | NUR ---
PATIENT HAS OWN HOME MEDICATIONS AT BEDSIDE. EDUCATED PT NOT TO TAKE HOME MEDICATIONS WHILE IN HOSPITAL DUE TO POTENTIAL ADVERSE REACTIONS AND CONTRAINDICATIONS. PT VERBALIZED UNDERSTANDING AND REPORTS HE HASN'T TAKEN THEM SINCE BEFORE ADMISSION. ASKED IF HIS MEDS COULD BE TAKEN TO PHARMACY, PT REPORTS HE WOULD RATHER HAVE HIS FRIEND TAKE THEM HOME FOR HIM, WILL CONTINUE TO MONITOR.
[2019-11-11] MEDS ORDERED: LACTULOSE 20Gm/30ML SOLN PO PRN (16:30)
[2019-11-11] MEDS: PANTOPRAZOLE 40 MG/10 ML VIAL INJ IV SCH ×2 (16:56→21:25)
[2019-11-11 17:00] VITALS: BP 102/65
[2019-11-11 17:50] LABS: Urine WBC None Seen /hpf (0 - 3)
[2019-11-11 18:19] LABS: Urine Bacteria NONE SEEN /hpf (None Seen); Urine Blood Negative /uL (Negative)
--- NOTE | 2019-11-11 18:25 | NUR ---
Respiratory note: PT REFUSE NEXT SCHEDULED MED NEB FOR 0000
[2019-11-11 19:53] VITALS: BP 102/65
[2019-11-11] MEDS: ATORVASTATIN 20 MG TAB PO SCH (21:23)
[2019-11-11] MEDS: TEMAZEPAM 15 MG CAP PO PRN (21:24)
[2019-11-11 22:00] VITALS: BP 93/57
[2019-11-12] VITALS (19 sets, daily range): BP systolic 84–111; BP diastolic 42–74
[2019-11-12 05:30] LABS: Hemoglobin 8.5 g/dL (13.5-17.5)
[2019-11-12] MEDS: ALBUTEROL SULF 2.5 MG/0.5ML(0.5%) NEB SOLN NEB SCH ×4 (05:33→17:45)
[2019-11-12 05:40] LABS: Hematocrit 22.7 % (41.0-53.0); Mean Corpuscular Hemoglobin 40.4 pg (28.0-32.0); Mean Corpuscular Hgb Conc. 37.3 g/dL (32.0-36.0); Mean Corpuscular Volume 108.4 fL (80.0-100.0); Platelet Count (auto) 185 10^3/uL (140-450); Red Blood Cells 2.09 10^6/uL (4.5-5.90); Red Cell Distribution Width 13.3 % (11.8-14.3); White Blood Cell 4.3 10^3/uL (4.4-10.8)
[2019-11-12 05:43] LABS: BUN/Creatinine Ratio 28.6; Calcium 8.5 mg/dL (8.5-10.1); Potassium 4.6 mmol/L (3.5-5.1)
[2019-11-12] MEDS: InsuLIN REG 1unit/0.01ml Soln (100units/ml) SC SCH ×4 (06:18→21:50)
[2019-11-12] MEDS: ACCU-CHEK COMFORT CURVE STRIP VI SCH ×4 (06:18→21:51)
[2019-11-12 06:28] LABS: Band Neutrophils % (manual) 0; Basophils % (manual) 0 (0.0-2.0); Blast Cells 0; Metamyelocytes % 0; Myelocytes % 0; Promyelocytes % 0; Reactive Lymphocytes 0
[2019-11-12 07:27] LABS: Eosinophils % (manual) 15 (0-7); Lymphocytes % (manual) 26 (10.0-50.0); Monocytes % (manual) 9 (0-12)
--- NOTE | 2019-11-12 08:56 | NUR ---
COMMUNITY RELATIONS ASSISTANT Patient taken to In Home Sales Consultant via bed, no distress noted upon departure.
[2019-11-12] MEDS: SODIUM CHLORIDE 0.9% 1,000 ML IV SCH (09:00)
[2019-11-12] MEDS ORDERED: LIDOCAINE HCL 100 MG/5ML (2%) SYRG INJ IV ONE (09:07)
[2019-11-12] MEDS ORDERED: HEPARIN IN NS 1000Units/500mL 0 ML ONE (09:07)
[2019-11-12] MEDS ORDERED: IODIXANOL 320MG/ML 100ML BTL IV ONE ×2 (09:07→13:48)
[2019-11-12] MEDS ORDERED: LIDOCAINE 2%HCL (LOCAL ANESTH.) INJ 20ML MDV ONE ×2 (09:10→10:44)
[2019-11-12] MEDS ORDERED: MIDAZOLAM HCL 1MG/1ML-2 ML VIAL ONE ×3 (09:11→13:16)
[2019-11-12] MEDS ORDERED: ANGIOMAX 250 MG VIAL IV ONE ×3 (09:11→12:05)
[2019-11-12] MEDS ORDERED: SODIUM CHL 0.9% 50 ML ONE ×3 (09:11→12:05)
[2019-11-12] MEDS ORDERED: fentaNYL CITRATE 100 MCG/2 ML VL ONE ×3 (09:11→13:16)
[2019-11-12] MEDS: CARVEDILOL 3.125 MG TAB PO SCH ×2 (10:00→21:50)
[2019-11-12] MEDS: PANTOPRAZOLE 40 MG/10 ML VIAL INJ IV SCH ×2 (10:00→21:50)
[2019-11-12] MEDS: ENOXAPARIN SOD 40 MG/0.4 ML SYRINGE SC SCH (10:00)
[2019-11-12] MEDS: CLOPIDOGREL BISULFATE 75 MG TAB PO SCH (10:00)
[2019-11-12] MEDS: ASPirin 81 mg TAB PO SCH (10:00)
[2019-11-12] MEDS ORDERED: diphenhdrAMINE HCL 50 MG/1 ML VL ONE (10:21)
[2019-11-12] MEDS ORDERED: HYDROmorphone HCL 2 MG/ML VL ONE ×2 (11:35→15:29)
[2019-11-12] MEDS ORDERED: ceFAZolin 1GM/50ML 50 ML IV ONE (12:23)
[2019-11-12] MEDS ORDERED: ONDANSETRON HCL 4 MG/2 ML VIAL ONE (13:44)
[2019-11-12] MEDS ORDERED: NOREPINEPHRINE 8 MG/250ML KIT 250 ML IV ONE (14:38)
--- NOTE | 2019-11-12 15:10 | NUR ---
SURGICAL Call received from Dr Mahajan. New orders received and followed through. Patient remains in [employer].
--- NOTE | 2019-11-12 15:17 | NUR ---
NUTRITION ASSESSMENT NOTES Please refer to link notes of nutrition screen form filed under the intervention section of the plan of care for further details. Est. Needs: 2050 kcal to 2450 kcal (25-30 kcal/kgBW), 66 gms to 82gms pro (0.8-1.0 gms/kgBW). Will continue to monitor pertinent labs and reassess nutrient need prn Thank you. Addendum: 11/12/19 at [address] Amended: Links added.
[2019-11-12 16:20] LABS: Basophils # (auto) 0.1 uL; Lymphocytes # (auto) 1.7 uL; Monocytes # (auto) 0.8 uL; Neutrophils # (auto) 6.2 uL; Nucleated Red Blood Cells % 0.1 %
[2019-11-12 16:22] LABS: Basophils % (auto) 0.6 % (0.0-2.0); Eosinophils % (auto) 10.2 % (0.0-7.0); Hemoglobin 8.7 g/dL (13.5-17.5); Lymphocytes % (auto) 17.1 % (10.0-50.0); Mean Corpuscular Hemoglobin 37.4 pg (28.0-32.0); Mean Corpuscular Hgb Conc. 34.6 g/dL (32.0-36.0); Mean Corpuscular Volume 107.9 fL (80.0-100.0); Neutrophils % (auto) 64.1 % (37.0-80.0); Platelet Count (auto) 275 10^3/uL (140-450); Red Blood Cells 2.32 10^6/uL (4.5-5.90); Red Cell Distribution Width 14.1 % (11.8-14.3); White Blood Cell 9.7 10^3/uL (4.4-10.8)
--- NOTE | 2019-11-12 17:45 | NUR ---
Respiratory note: SCHEDULED MED NEB TX NOT GIVEN. PT IS AT A PROCEDURE.
[2019-11-12] MEDS ORDERED: diphenhdrAMINE HCL 25 MG CAP PO ONE (19:00)
--- NOTE | 2019-11-12 19:06 | NUR ---
Care endorsed to CAROL Wall, night nurse.
[2019-11-12] MEDS: NOREPINEPHRINE 8 MG/250ML KIT 250 ML IV SCH (21:13)
--- NOTE | 2019-11-12 21:13 | NUR ---
Recieved patient from dental laboratory technician apprentice: AIME ABDI admitted to ICU via gurney on cardiac exercise specialist, and portable 02. Patient transfered to bed, connected to ICU monitoring and oxygen, and weighed by [facility]. Patient is s/p peripheral angiogram with Dr. Barr; right groin 4x4/tegaderm CDI; left medial ankle incision: gauze and coban CDI. Currently on levophed for blood pressure support at 7mcg/min. Patient informed that he must remain flat until 2300. Patient oriented to HENOK RICE, primary RN, unit, room, bed, and unit policies regarding patient care and visiting hours. All questions and concerns addressed, patient verbalized understanding.
[2019-11-12] MEDS: ATORVASTATIN 20 MG TAB PO SCH (21:49)
[2019-11-12] MEDS: LORazepam 0.5 MG TAB PO PRN (21:49)
[2019-11-12] MEDS: traMADol HCL 50 MG TAB PO PRN (21:49)
[2019-11-12] MEDS: TEMAZEPAM 15 MG CAP PO PRN (21:50)
--- NOTE | 2019-11-12 22:34 | NUR ---
Blood transfusion started.
[2019-11-13] VITALS (67 sets, daily range): BP systolic 78–177; BP diastolic 39–150
--- NOTE | 2019-11-13 | NUR ---
Spoke with Dr. Jesus: New order for levophed; patient was admitted to ICU on levophed drip at 7mcg/hr; new order also received for breakthrough pain medication: norco 5/325 mg Q6H prn.
--- NOTE | 2019-11-13 | NUR ---
NPO at this time for surgical intervention.
[2019-11-13] MEDS: ALBUTEROL SULF 2.5 MG/0.5ML(0.5%) NEB SOLN NEB SCH ×4 (00:15→19:10)
[2019-11-13] MEDS: HYDROcodone-ACET 5/325MG TAB PO PRN ×3 (01:00→16:22)
[2019-11-13] MEDS ORDERED: HYDROcodone-ACET 5/325MG TAB PO PRN (01:00)
--- NOTE | 2019-11-13 01:30 | NUR ---
Blood transfusion end. No reactions noted and vital signs within normal limits.
--- NOTE | 2019-11-13 02:30 | NUR ---
POST BLOOD TRANSFUSION VITAL SIGNS TEMP 98.4, HR 90, RESP 17, BP 110/53MMHG
[2019-11-13] MEDS: SODIUM CHLORIDE 0.9% 1,000 ML IV SCH (05:00)
--- NOTE | 2019-11-13 05:14 | NUR ---
MRSA swab sent to lab via 1bibt system.
[2019-11-13] MEDS: traMADol HCL 50 MG TAB PO PRN (05:15)
[2019-11-13] MEDS: InsuLIN REG 1unit/0.01ml Soln (100units/ml) SC SCH ×4 (06:34→22:15)
[2019-11-13] MEDS: ACCU-CHEK COMFORT CURVE STRIP VI SCH ×4 (06:35→22:16)
[2019-11-13 08:35] LABS: BUN/Creatinine Ratio 22.7; Calcium 7.8 mg/dL (8.5-10.1); Potassium 5.5 mmol/L (3.5-5.1)
--- NOTE | 2019-11-13 08:45 | NUR ---
LEVOPHED GTT Levophed GTT decreased to 10mcg for a blood pressure for 130/56, will continue to titrate as tolerated by patient.
--- NOTE | 2019-11-13 09:45 | NUR ---
LEVOPHED GTT Levophed GTT decreased to 5 mcg for a blood pressure of 125/59, will titrate as tolerated by patient.
[2019-11-13] MEDS: ENOXAPARIN SOD 40 MG/0.4 ML SYRINGE SC SCH (10:00)
[2019-11-13] MEDS: CARVEDILOL 3.125 MG TAB PO SCH ×2 (10:00→21:57)
[2019-11-13] MEDS ORDERED: FUROSEMIDE 100 MG/10ML VIAL IV ONE (10:15)
[2019-11-13] MEDS: LORazepam 0.5 MG TAB PO PRN (10:27)
[2019-11-13] MEDS: CLOPIDOGREL BISULFATE 75 MG TAB PO SCH (10:28)
[2019-11-13] MEDS: PANTOPRAZOLE 40 MG/10 ML VIAL INJ IV SCH ×2 (10:29→21:43)
[2019-11-13] MEDS: ASPirin 81 mg TAB PO SCH (10:29)
[2019-11-13] MEDS ORDERED: SODIUM ZIRCONIUM CYCL 10 GM PAK PO ONE (10:30)
[2019-11-13] MEDS ORDERED: DEXTROSE (50%) 50ML SYRG IV ONE (10:30)
[2019-11-13] MEDS ORDERED: SODIUM BICARBONATE 8.4% INJ 50ML SYRINGE IV ONE (10:30)
[2019-11-13] MEDS ORDERED: InsuLIN REG 1unit/0.01ml Soln (100units/ml) IV ONE (10:30)
[2019-11-13] MEDS ORDERED: ALBUTEROL SULF 2.5 MG/0.5ML(0.5%) NEB SOLN NEB ONE (10:30)
--- NOTE | 2019-11-13 10:30 | NUR ---
ELIMINATION Patient was able to void in urinal 200ml of dark urine output.
--- NOTE | 2019-11-13 10:40 | NUR ---
MD Dr. Quintana at bedside updated on patient with new orders, MD to input into system. MD spoke to patient regarding plan of care with patient. Will carry out orders.
--- NOTE | 2019-11-13 10:50 | NUR ---
Received phone call from Dr. Mahajan and updated on patient condition and reason why consultation. 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
--- NOTE | 2019-11-13 11:20 | NUR ---
ELIMINATION Patient was able to void in urinal 275 light itzel urine.
[2019-11-13] MEDS ORDERED: THROMBIN (BOVINE) 5000 UNIT SOL VIAL TP ONE (12:30)
--- NOTE | 2019-11-13 13:00 | NUR ---
LEVOPHED GTT Levophed GTT turned off for a blood pressure of 106/52, will continue to monitor patients blood pressure.
--- NOTE | 2019-11-13 13:20 | NUR ---
ULTRASOUND Received phone call from feed mill lab technician regarding if we have thrombin injection in unit informed that this RN is unaware and asked fellow nurse Carli and states " she does not believe so." Informed test technician to call pharmacy.
--- NOTE | 2019-11-13 13:55 | NUR ---
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
--- NOTE | 2019-11-13 14:00 | NUR ---
RADIOLOGIST Radiologist at bedside to perform procedure.
--- NOTE | 2019-11-13 14:30 | NUR ---
RADIOLOGIST Dr. Marsh has finished procedure: patient tolerated well. Dr. Marsh states " when injected patient with thrombin it was starting to clot, he may still need surgery."
--- NOTE | 2019-11-13 14:58 | NUR ---
Assessment Pt is a 68 yr old male. Pt was in a procedure when SW visited the ICU to talk with the pt so SW contacted his emergency contact, Brando Kingsley, who is a friend, at [phone]. Pt used no DME and was independent with ADL's prior to admit, and had no extra help in the home. No other information known. Further needs will be assessed closer to d/c. Addendum: 11/13/19 at 1612 by LEIDA CHACKO SS Amended: Links added.
--- NOTE | 2019-11-13 15:30 | NUR ---
LEVOPHED GTT Levophed GTT re-started at 2.5mcg for a blood pressure of 80/42 and repositioned blood pressure cuff received 75/35. Will continue to titrate as tolerated by patient.
[2019-11-13 15:31] LABS: BUN/Creatinine Ratio 21.4; Calcium 7.7 mg/dL (8.5-10.1); Potassium 4.4 mmol/L (3.5-5.1)
--- NOTE | 2019-11-13 16:00 | NUR ---
Received phone call from Dr. Quintana and informed her of patients blood pressure and had to re start Levophed GTT at 2.5mcg. states " to start feeding patient consist. carb diet. "
--- NOTE | 2019-11-13 16:10 | NUR ---
LEVOPHED GTT Levophed GTT increased to 5 mcg for a blood pressure of 79/46, will continue to titrate as tolerated by patient.
[2019-11-13] MEDS: LACTULOSE 20Gm/30ML SOLN PO SCH ×3 (16:20→21:43)
[2019-11-13] MEDS ORDERED: diphenhdrAMINE HCL 25 MG CAP PO ONE (17:00)
--- NOTE | 2019-11-13 18:40 | NUR ---
ELIMINATION Patient was able to void 300ml clear yellow urine.
--- NOTE | 2019-11-13 19:10 | NUR ---
Respiratory note: PT SEEN FOR SCHEDULED MED NEB TX AT 1910. PT REFUSED HIS TREATMENT AT THIS TIME. HE IS AGITATED RIGHT NOW, PT IS COMPLAINING THAT ABOUT HOW HIS DINNER IS LATE AND IS MAD THAT I DIDN'T SEE HIM FIRST. PT STATED TO COME BACK LATER. NO DISTRESS NOTED AT THIS TIME. HR 84 RR 18 POX 97% ON ROOM AIR.
[2019-11-13] MEDS: ATORVASTATIN 20 MG TAB PO SCH (21:43)
[2019-11-14] VITALS (51 sets, daily range): BP systolic 85–133; BP diastolic 17–70
[2019-11-14] MEDS: ALBUTEROL SULF 2.5 MG/0.5ML(0.5%) NEB SOLN NEB SCH ×4 (00:42→19:08)
--- NOTE | 2019-11-14 00:42 | NUR ---
Respiratory note: PT SEEN FOR SCHEDULED MED NEB TX AT 0042. PT REFUSED HIS TREATMENT AT THIS TIME STATING THAT HE WANTS TO SLEEP. NO DISTRESS NOTED AT THIS TIME. PT WAS SLEEPING WHEN ENTERING THE ROOM. HR 77 RR 16 POX 95% ON ROOM AIR.
[2019-11-14] MEDS: NOREPINEPHRINE 8 MG/250ML KIT 250 ML IV SCH (01:00)
[2019-11-14] MEDS: LACTULOSE 20Gm/30ML SOLN PO SCH ×2 (02:00→06:00)
[2019-11-14 04:33] LABS: Potassium 4.8 mmol/L (3.5-5.1)
[2019-11-14 04:47] LABS: BUN/Creatinine Ratio 19.4; Calcium 8.4 mg/dL (8.5-10.1)
[2019-11-14 05:39] LABS: Basophils # (auto) 0 uL; Basophils % (auto) 0.7 % (0.0-2.0); Eosinophils # (auto) 0.8 uL; Eosinophils % (auto) 11.5 % (0.0-7.0); Hematocrit 23.6 % (41.0-53.0); Hemoglobin 8.2 g/dL (13.5-17.5); Lymphocytes # (auto) 1.3 uL; Lymphocytes % (auto) 19.3 % (10.0-50.0); Mean Corpuscular Hemoglobin 33.3 pg (28.0-32.0); Mean Corpuscular Hgb Conc. 34.9 g/dL (32.0-36.0); Mean Corpuscular Volume 95.3 fL (80.0-100.0); Monocytes # (auto) 0.9 uL; Monocytes % (auto) 13.7 % (0.0-12.0); Neutrophils # (auto) 3.6 uL; Neutrophils % (auto) 54.8 % (37.0-80.0); Nucleated Red Blood Cells % 0.4 %; Platelet Count (auto) 166 10^3/uL (140-450); Red Blood Cells 2.47 10^6/uL (4.5-5.90); Red Cell Distribution Width 15.3 % (11.8-14.3); White Blood Cell 6.6 10^3/uL (4.4-10.8)
[2019-11-14] MEDS: ACCU-CHEK COMFORT CURVE STRIP VI SCH (07:00)
[2019-11-14] MEDS: InsuLIN REG 1unit/0.01ml Soln (100units/ml) SC SCH (07:00)
--- NOTE | 2019-11-14 07:28 | NUR ---
SHIFT OPENING NOTE REPORT RECEIVED FROM ZIPPER REPAIRER RN. PATIENT AOX4, MOVING ALL EXTREMITIES, REPORTS MINIMAL DISCOMFORT IN BACK FROM "LYING IN BED". ABDOMEN SOFT, ROUND, AND NONTENDER, BLADDER NON DISTENDED. PLAN OF CARE DISCUSSED WITH PATIENT IN DETAIL WITH QUESTIONS AND CONCERNS ADDRESSED AT THIS TIME
[2019-11-14] MEDS: HYDROcodone-ACET 5/325MG TAB PO PRN ×2 (07:40→19:57)
--- NOTE | 2019-11-14 08:30 | NUR ---
LEVOPHED TURNED OFF
--- NOTE | 2019-11-14 09:42 | NUR ---
DR. JEFFRIES AT BEDSIDE
[2019-11-14] MEDS ORDERED: ALBUMIN 5% 250 ML IV ONE (09:45)
[2019-11-14] MEDS ORDERED: MIDODRINE HCL 10 MG TAB PO ONE (09:45)
[2019-11-14] MEDS: CLOPIDOGREL BISULFATE 75 MG TAB PO SCH (09:45)
[2019-11-14] MEDS: CARVEDILOL 3.125 MG TAB PO SCH (09:46)
[2019-11-14] MEDS: ASPirin 81 mg TAB PO SCH (09:46)
[2019-11-14] MEDS: PANTOPRAZOLE 40 MG TAB PO SCH (10:08)
[2019-11-14] MEDS: MIDODRINE HCL 10 MG TAB PO SCH ×2 (11:51→17:55)
--- NOTE | 2019-11-14 13:30 | NUR ---
AIME ABDI received to JULIET from ICU via hospital bed on bus monitor. Patient connected to unit monitoring and weighed by [facility]. Patient awake and alert. No S/S of SOB or pain. Saturation 99% at room air. RT groin dressing marked, small bruising noted, weak pedal pulses via doppler. LT LE flushed and warm to touch, palpable pedal pulses, thrombin injection site covered with band aid, no signs of bleeding noted. See interventions for complete assessment. Patient oriented to Rochelle solomon RN, unit, room, bed, and unit policies regarding patient care and visiting hours. All questions and concerns addressed, patient verbalized understanding. Bed locked on low position, side rails up x2, bed alarms on at all times, call linares within reach, will continue to monitor.
--- NOTE | 2019-11-14 15:08 | NUR ---
Patient with runs of V tach, patient symptomatic VS WNL. Will inform .
[2019-11-14] MEDS: LORazepam 0.5 MG TAB PO PRN (16:45)
--- NOTE | 2019-11-14 19:13 | NUR ---
RT NOTE PT WAS SEEN BY RT FOR HHN TX. PT TOLERATES WELL VIA MOUTHPIECE. NO ADVERSE REACTION NOTED. CONT ORDERED Addendum: 11/14/19 at 1914 by Scarlett Mcmanus RT Amended: Links added.
--- NOTE | 2019-11-14 19:25 | NUR ---
Opening Shift Note Received report from day nurse Komal. Assumed care of patient in room 261. Patient is awake and alert. Complete physical assessment under interventions. Instructed on POC and to call for assist PRN, will continue to monitor for changes Q1hr and PRN.
[2019-11-14] MEDS: ATORVASTATIN 20 MG TAB PO SCH (22:03)
[2019-11-14] MEDS: TEMAZEPAM 15 MG CAP PO PRN (22:37)
[2019-11-15] MEDS: ALBUTEROL SULF 2.5 MG/0.5ML(0.5%) NEB SOLN NEB SCH ×4 (00:50→20:07)
--- NOTE | 2019-11-15 00:50 | NUR ---
RT NOTE PT ASKED NOT TO BE AWAKENED IF SLEEPING. PT IS SLEEPING AT THIS TIME WITHOUT SOB OR DISTRESS. HR 78, RR 18, POX 93%.CAROL GOLDSMITH WILL CALL IF TX NEEDED BEFORE NEXT TX Addendum: 11/15/19 at 0107 by Scarlett Mcmanus RT Amended: Links added.
[2019-11-15] MEDS: NOREPINEPHRINE 8 MG/250ML KIT 250 ML IV SCH (01:00)
[2019-11-15 04:00] VITALS: BP 111/59
[2019-11-15] MEDS: HYDROcodone-ACET 5/325MG TAB PO PRN ×3 (05:25→18:34)
--- NOTE | 2019-11-15 05:39 | NUR ---
Bed bath Linen change done by CCT.
[2019-11-15] MEDS: MIDODRINE HCL 10 MG TAB PO SCH ×2 (06:20→11:27)
[2019-11-15 06:37] LABS: Albumin 2.7 g/dL (3.4-5.0); Calcium 8.4 mg/dL (8.5-10.1); Potassium 4.5 mmol/L (3.5-5.1)
[2019-11-15 06:42] LABS: BUN/Creatinine Ratio 21.8; Bilirubin, Total 1.1 mg/dL (0.2-1.0); Total Protein 6.3 g/dL (6.4-8.2)
--- NOTE | 2019-11-15 07:45 | NUR ---
Opening Shift Note Assumed care of patient, awake and alert, doing oral care and shaving. No S/S of distress/SOB or pain, room air O2 saturation 95-97%. Instructed on POC and to call for assist PRN, will continue to monitor for changes Q1hr and PRN.
[2019-11-15 07:46] LABS: Eosinophils # (auto) 0.7 uL; Hemoglobin 7.9 g/dL (13.5-17.5); Lymphocytes # (auto) 1.3 uL; Monocytes # (auto) 0.9 uL; White Blood Cell 5.8 10^3/uL (4.4-10.8)
[2019-11-15 07:48] LABS: Basophils # (auto) 0 uL; Basophils % (auto) 0.5 % (0.0-2.0); Eosinophils % (auto) 12.9 % (0.0-7.0); Hematocrit 22.5 % (41.0-53.0); Lymphocytes % (auto) 22.4 % (10.0-50.0); Mean Corpuscular Hemoglobin 34.4 pg (28.0-32.0); Mean Corpuscular Hgb Conc. 35.1 g/dL (32.0-36.0); Mean Corpuscular Volume 97.9 fL (80.0-100.0); Monocytes % (auto) 14.8 % (0.0-12.0); Neutrophils # (auto) 2.9 uL; Neutrophils % (auto) 49.4 % (37.0-80.0); Nucleated Red Blood Cells % 0.2 %; Platelet Count (auto) 164 10^3/uL (140-450); Red Cell Distribution Width 14.9 % (11.8-14.3)
[2019-11-15 07:57] VITALS: BP 107/58
--- NOTE | 2019-11-15 08:00 | NUR ---
Using Doppler checking both pedal pulse, left pedal strong sound by Doppler, redness and swollen, right popiteal pulse noticed by Doppler.
--- NOTE | 2019-11-15 08:50 | NUR ---
Patient had 100% of breakfast , no N/V noted.
[2019-11-15] MEDS: PANTOPRAZOLE 40 MG TAB PO SCH (10:03)
[2019-11-15] MEDS: ASPirin 81 mg TAB PO SCH (10:03)
[2019-11-15] MEDS: CLOPIDOGREL BISULFATE 75 MG TAB PO SCH (10:03)
--- NOTE | 2019-11-15 10:15 | NUR ---
Patient taking a nap, no arrhythmia noted. Will continue to monitor and care.
[2019-11-15] MEDS: LORazepam 0.5 MG TAB PO PRN (11:27)
[2019-11-15 12:00] VITALS: BP 94/64
[2019-11-15] MEDS ORDERED: diphenhdrAMINE HCL 25 MG CAP PO ONE ×2 (12:00→21:30)
--- NOTE | 2019-11-15 12:05 | NUR ---
Dr. Foster at the bedside, sen and examined patient at his time, plan of care discussed with patient, received order for transfer to [facility] , Will continue to monitor Tachycardia. No chest pain noted at this time. Will follow up with H&H at 4 pm. Will continue to monitor and care.
--- NOTE | 2019-11-15 12:35 | NUR ---
Patient lying on the bed, [place] given for pain management, patient refused to take Benadryl at this time. Will continue to monitor and care.
--- NOTE | 2019-11-15 13:30 | NUR ---
Patient had 100% of Lunch, no N/V noted. No complaining of pain noted after [place] given, made aware about the room, will get Tele box and give a report then will transfer with the bed.
--- NOTE | 2019-11-15 13:50 | NUR ---
JULIET pt transferred to floor AIME ABDI transferred to 290A via hospital bed on campus monitor (Tele#[id number]). All patient medications and personal belongings transferred with patient to receiving floor. Patient care transferred to Mckenzie MEDINA.
--- NOTE | 2019-11-15 14:00 | NUR ---
PATIENT ARRIVED ON UNIT FROM JULIET. PATIENT FAMILIAR WITH THIS RN FROM PREVIOUS VISIT AND APPEARS TO BE IN GOOD SPIRITS. EDUCATED PATIENT ON UNIT POLICIES AND PLAN OF CARE. ADDRESSED CONCERNS. RESPIRATIONS EVEN AND UNLABORED. VS OBTAINED: HR 83, O2 96% ON ROOM AIR, BP 135/101 98.9 TEMP. PATIENT WEIGHED 81.5 KG. CALL LIGHT WITHIN REACH, ABLE TO RETURN DEMONSTRATION. FALL PRECAUTIONS IN PLACE. WILL CONTINUE TO MONITOR.
[2019-11-15 16:15] LABS: Hematocrit 22.4 % (41.0-53.0); Hemoglobin 7.9 g/dL (13.5-17.5)
[2019-11-15 16:56] VITALS: BP 135/101
--- NOTE | 2019-11-15 19:23 | NUR ---
CARE ENDORSED TO JOCELINE MEDINA.
--- NOTE | 2019-11-15 20:02 | NUR ---
Opening Shift Note Assumed care of patient, awake and alert. No S/S of distress/SOB or pain. patient reports itching. per patient he has history of being itchy. Will notify hospitalist. Instructed on POC and to call for assist PRN, will continue to monitor for changes Q1hr and PRN. dressing to right groin is clean dry and intact.
--- NOTE | 2019-11-15 21:06 | NUR ---
new orders from hospitalist. orders read back and verified.
[2019-11-15] MEDS ORDERED: LORazepam 0.5 MG TAB PO PRN (21:30)
[2019-11-15] MEDS: ATORVASTATIN 20 MG TAB PO SCH (21:37)
[2019-11-15] MEDS: CARVEDILOL 3.125 MG TAB PO SCH (21:38)
[2019-11-15 21:43] VITALS: BP 124/63
--- NOTE | 2019-11-16 00:28 | NUR ---
RT NOTE PT ASKED NOT TO BE WOKEN FOR THIS SCHEDULED TX IF SLEEPING. PT IS SLEEPING. NO SIGNS OF RESP DISTRESS NOTED BY RT. TX HELD PER PT REQUEST. PT AWARE TO HAVE RT CALLED IF THEY WAKE AND WANT A TX. RT NAME AND PAGER NUMBER ON PT BOARD.
[2019-11-16] MEDS: HYDROcodone-ACET 5/325MG TAB PO PRN (00:39)
[2019-11-16 05:52] VITALS: BP 111/70
[2019-11-16 06:02] LABS: BUN/Creatinine Ratio 20.9; Calcium 8.6 mg/dL (8.5-10.1); Potassium 4.5 mmol/L (3.5-5.1)
[2019-11-16 06:51] LABS: Basophils # (auto) 0 uL; Basophils % (auto) 1.1 % (0.0-2.0); Eosinophils # (auto) 0.7 uL; Eosinophils % (auto) 14.8 % (0.0-7.0); Hematocrit 24.3 % (41.0-53.0); Hemoglobin 8.4 g/dL (13.5-17.5); Lymphocytes # (auto) 1.3 uL; Lymphocytes % (auto) 27.8 % (10.0-50.0); Mean Corpuscular Hemoglobin 33.6 pg (28.0-32.0); Mean Corpuscular Hgb Conc. 34.6 g/dL (32.0-36.0); Mean Corpuscular Volume 97.1 fL (80.0-100.0); Monocytes # (auto) 0.6 uL; Monocytes % (auto) 14.2 % (0.0-12.0); Neutrophils # (auto) 1.9 uL; Neutrophils % (auto) 42.1 % (37.0-80.0); Nucleated Red Blood Cells % 0.1 %; Platelet Count (auto) 183 10^3/uL (140-450); Red Cell Distribution Width 15.1 % (11.8-14.3); White Blood Cell 4.5 10^3/uL (4.4-10.8)
--- NOTE | 2019-11-16 07:03 | NUR ---
report given to dayshift rn. patient denies sob/distress or pain
[2019-11-16] MEDS: ALBUTEROL SULF 2.5 MG/0.5ML(0.5%) NEB SOLN NEB SCH ×3 (07:19→13:40)
--- NOTE | 2019-11-16 08:49 | NUR ---
OPENING SHIFT NOTE: PATIENT RESTING IN BED. REQUESTING TO USE FWW AND AMBULATE TODAY. UPDATED ON PLAN OF CARE. COMMODE AT BEDSIDE. PATIENT RESPIRATIONS EVEN AND UNLABORED. CALL LIGHT WITHIN REACH, WILL CONTINUE TO MONITOR.
[2019-11-16 09:00] VITALS: BP 105/62
[2019-11-16] MEDS: CARVEDILOL 3.125 MG TAB PO SCH (10:00)
--- NOTE | 2019-11-16 10:06 | NUR ---
IV IN RIGHT HAND DISCONTINUED. MANUAL PRESSURE APPLIED CATHETER INTACT.
--- NOTE | 2019-11-16 10:07 | NUR ---
AM COREG DOSE HELD, BP 105/62. HR 86.
[2019-11-16] MEDS: PANTOPRAZOLE 40 MG TAB PO SCH (10:08)
[2019-11-16] MEDS: ASPirin 81 mg TAB PO SCH (10:08)
[2019-11-16] MEDS: CLOPIDOGREL BISULFATE 75 MG TAB PO SCH (10:08)
[2019-11-16 13:00] VITALS: BP 121/70
--- NOTE | 2019-11-16 14:09 | NUR ---
Social Service consult regarding resuming Home Health. Pt was previously on service with [facility] and will be resuming with this service upon discharge. [facility] contacted and information faxed to [facility]. Information was received and services to resume upon discharge. Will notify covering nurse and TRIP II of the above.
--- NOTE | 2019-11-16 14:39 | NUR ---
CALL FROM RONALDO SERRANO. PATIENT ALL SET UP TO RE-START [facility] ON DC.
[2019-11-16] MEDS ORDERED: CLOP75TA28 PO (15:29)
[2019-11-16] MEDS ORDERED: ATOR20TA50 PO (15:29)
[2019-11-16] MEDS ORDERED: ASPI81CH43 PO (15:29)
[2019-11-16 16:00] VITALS: BP 105/62
--- NOTE | 2019-11-16 16:17 | NUR ---
PATIENT ABLE TO AMBULATE AROUND UNIT WITH PT. NO FWW NECESSARY, PATIENT HAD STEADY GAIT.
--- NOTE | 2019-11-16 17:29 | NUR ---
PATIENT DISCHARGED: PATIENT DISCHARGED HOME WITH HOME HEALTH CARE. ALL EDUCATION MATERIALS GIVEN TO PATIENT. PATIENT LEFT WITH BELONGINGS. IV DISCONTINUED, MANUAL PRESSURE APPLIED. TELE BOX RETURNED TO CARDIO UNIT. PATIENT ESCORTED OUT TO PRIVATE AUTO WITHOUT INCIDENCE.
== END 2019-11-16 17:29 | disposition home health service (06) | DRG 252 ==
LOC: EDUNIT# 12:53 → ER 12:53 → EDBD 12:53 → TELE 12:54 → TELE-CENTR 19:55 → ICU WEST 11-12 21:13 → DOU IN ICU 11-14 13:20 → TELE-WESTW 11-15 14:22
PROVIDERS: ADMIT Internal Medicine; ATTEND Internal Medicine Nephrology
PROC: 047N3DZ Dilation of Left Popliteal Artery with Intraluminal Device, Percutaneous Approach (ICD-10-PCS; principal; 2019-11-12)
PROC: 047L3DZ Dilation of Left Femoral Artery with Intraluminal Device, Percutaneous Approach (ICD-10-PCS; 2019-11-12)
PROC: 047D3ZZ Dilation of Left Common Iliac Artery, Percutaneous Approach (ICD-10-PCS; 2019-11-12)
PROC: 30233N1 Transfusion of Nonautologous Red Blood Cells into Peripheral Vein, Percutaneous Approach (ICD-10-PCS; 2019-11-12)
PROC: B41G1ZZ Fluoroscopy of Left Lower Extremity Arteries using Low Osmolar Contrast (ICD-10-PCS; 2019-11-12)
PROC: B41F1ZZ Fluoroscopy of Right Lower Extremity Arteries using Low Osmolar Contrast (ICD-10-PCS; 2019-11-12)
PROC: 3E05317 Introduction of Other Thrombolytic into Peripheral Artery, Percutaneous Approach (ICD-10-PCS; 2019-11-13)
DX: E11.51 Type 2 diabetes mellitus with diabetic peripheral angiopathy without gangrene (principal); I21.A1 Myocardial infarction type 2; I50.43 Acute on chronic combined systolic (congestive) and diastolic (congestive) heart failure; N17.0 Acute kidney failure with tubular necrosis; R57.0 Cardiogenic shock; I13.0 Hypertensive heart and chronic kidney disease with heart failure and stage 1 through stage 4 chronic kidney disease, or unspecified chronic kidney disease; I70.92 Chronic total occlusion of artery of the extremities; E11.22 Type 2 diabetes mellitus with diabetic chronic kidney disease; D63.8 Anemia in other chronic diseases classified elsewhere; E78.5 Hyperlipidemia, unspecified; N18.9 Chronic kidney disease, unspecified; J44.9 Chronic obstructive pulmonary disease, unspecified; I25.10 Atherosclerotic heart disease of native coronary artery without angina pectoris; I72.4 Aneurysm of artery of lower extremity; E87.5 Hyperkalemia; F12.90 Cannabis use, unspecified, uncomplicated; N14.1 Nephropathy induced by other drugs, medicaments and biological substances; N18.3 Chronic kidney disease, stage 3 (moderate); K70.30 Alcoholic cirrhosis of liver without ascites; D50.0 Iron deficiency anemia secondary to blood loss (chronic); R09.02 Hypoxemia; Z79.82 Long term (current) use of aspirin; Z79.899 Other long term (current) drug therapy; Z82.49 Family history of ischemic heart disease and other diseases of the circulatory system; Z87.891 Personal history of nicotine dependence; Z95.5 Presence of coronary angioplasty implant and graft
CPT/HCPCS: 36415; 37220; 37226; 71045; 71046; 75635; 75716; 76942; 78582; 80048; 80053; 80320; 81001; 82533; 82550; 82962; 83036; 83735; 83880; 84484; 85007; 85014; 85018; 85025; 85027; 85379; 85610; 85652; 85730; 86141; 86850; 86870; 86900; 86901; 86922; 87040; 87081; 87804; 93005; 93886; 93926; 93970; 94640; 94644; 96360; 96361; 97163; 99152; 99153; 99291; C1876; C9113; G0378; J0690; J1815; J1956; J2250; J2405; Q9967

== ENCOUNTER 2019-12-12 09:13 | Inpatient (IN) | payer MEDICARE, OTHER ==
[2019-12-10 11:42] LABS: Basophils # (auto) 0.1 uL; Basophils % (auto) 0.9 % (0.0-2.0); Eosinophils # (auto) 0.7 uL; Eosinophils % (auto) 12.3 % (0.0-7.0); Hematocrit 28.3 % (41.0-53.0); Hemoglobin 9.7 g/dL (13.5-17.5); Lymphocytes # (auto) 1.2 uL; Lymphocytes % (auto) 21.1 % (10.0-50.0); Mean Corpuscular Hgb Conc. 34.4 g/dL (32.0-36.0); Mean Corpuscular Volume 98.7 fL (80.0-100.0); Monocytes # (auto) 0.6 uL; Monocytes % (auto) 9.6 % (0.0-12.0); Neutrophils # (auto) 3.3 uL; Neutrophils % (auto) 56.1 % (37.0-80.0); Nucleated Red Blood Cells % 0.1 %; Platelet Count (auto) 307 10^3/uL (140-450); Red Blood Cells 2.87 10^6/uL (4.5-5.90); Red Cell Distribution Width 14.9 % (11.8-14.3); White Blood Cell 5.8 10^3/uL (4.4-10.8)
[2019-12-10 11:58] LABS: INR 1.13 (0.9-1.15); Partial Thromboplastin Time 26.4 sec (23.64-32.05)
[2019-12-10 12:38] LABS: Albumin 3.2 g/dL (3.4-5.0); BUN/Creatinine Ratio 21.2; Bilirubin, Total 0.7 mg/dL (0.2-1.0); Calcium 8.7 mg/dL (8.5-10.1); Total Protein 8.2 g/dL (6.4-8.2)
[~2019-12-12] VITALS: Ht 182.9 cm; Wt 85.8 kg
[~2019-12-12 09:13] MED LIST changes: -ALBUAER3 IN; +ASPI81CH43 PO; -CIP03OS LEFTEYE; +CLOP75TA28 PO; +FAMO-12 PO; +HYDR-531 PO; +LISI-646 PO
[2019-12-12] MEDS ORDERED: LIDOCAINE 2%HCL (LOCAL ANESTH.) INJ 20ML MDV ONE (12:43)
[2019-12-12] MEDS ORDERED: IODIXANOL 320MG/ML 100ML BTL IV ONE (12:44)
[2019-12-12] MEDS ORDERED: ANGIOMAX 250 MG VIAL IV ONE (12:44)
[2019-12-12] MEDS ORDERED: SODIUM CHL 0.9% 50 ML ONE (12:45)
[2019-12-12] MEDS ORDERED: VERAPAMIL 2.5MG/ML INJ 2ML VIAL IV ONE (12:45)
[2019-12-12] MEDS ORDERED: fentaNYL CITRATE 100 MCG/2 ML VL ONE (12:45)
[2019-12-12] MEDS ORDERED: MIDAZOLAM HCL 1MG/1ML-2 ML VIAL ONE ×2 (12:45→14:25)
[2019-12-12] MEDS ORDERED: diphenhdrAMINE HCL 50 MG/1 ML VL ONE (13:17)
[2019-12-12] MEDS ORDERED: ACETAMINOPHEN 500 MG TAB PO PRN (15:15)
[2019-12-12] MEDS ORDERED: ONDANSETRON HCL 4 MG/2 ML VIAL IV PRN (15:15)
[2019-12-12] MEDS ORDERED: CLOPIDOGREL BISULFATE 75 MG TAB PO ONE (15:15)
[2019-12-12] MEDS ORDERED: ASPirin 81 mg TAB PO ONE (15:15)
[2019-12-12] MEDS ORDERED: ZOLPIDEM TARTRATE 5 MG TAB PO PRN (15:45)
[2019-12-12] MEDS ORDERED: LORazepam 0.5 MG TAB PO PRN (15:45)
[2019-12-12 18:16] VITALS: BP 130/71
[2019-12-12 22:00] VITALS: BP 122/64
[2019-12-12] MEDS ORDERED: ATORVASTATIN 20 MG TAB PO SCH (22:00)
[2019-12-12] MEDS: CARVEDILOL 3.125 MG TAB PO SCH (22:05)
[2019-12-12] MEDS: HYDROcodone-ACET 10/325MG TAB PO PRN (22:06)
[2019-12-13 05:00] VITALS: BP 104/70
[2019-12-13] MEDS: HYDROcodone-ACET 10/325MG TAB PO PRN ×2 (07:48→13:36)
[2019-12-13 09:00] VITALS: BP 105/69
[2019-12-13] MEDS ORDERED: LISINOPRIL 20 MG TAB PO SCH (10:00)
[2019-12-13] MEDS ORDERED: FAMOTIDINE 20 MG TAB PO SCH (10:00)
[2019-12-13] MEDS ORDERED: ASPirin 81 mg TAB PO SCH (10:00)
[2019-12-13] MEDS ORDERED: FUROSEMIDE 40 MG TAB PO SCH (10:00)
[2019-12-13] MEDS ORDERED: CLOPIDOGREL BISULFATE 75 MG TAB PO SCH (10:00)
[2019-12-13] MEDS: CARVEDILOL 3.125 MG TAB PO SCH (10:28)
[2019-12-13 13:00] VITALS: BP 103/67
[2019-12-13 16:42] VITALS: BP 103/64
[2019-12-13 16:54] VITALS: BP 103/64
[2019-12-13 17:00] VITALS: BP 103/64
== END 2019-12-13 17:20 | disposition home or self-care (01) | DRG 252 ==
LOC: CATH 09:13 → EAST 18:26
PROVIDERS: ADMIT Internal Medicine; ATTEND Internal Medicine
PROC: 047K3Z1 Dilation of Right Femoral Artery using Drug-Coated Balloon, Percutaneous Approach (ICD-10-PCS; principal; 2019-12-12)
PROC: 047M3Z1 Dilation of Right Popliteal Artery using Drug-Coated Balloon, Percutaneous Approach (ICD-10-PCS; 2019-12-12)
PROC: B41FYZZ Fluoroscopy of Right Lower Extremity Arteries using Other Contrast (ICD-10-PCS; 2019-12-12)
DX: E11.51 Type 2 diabetes mellitus with diabetic peripheral angiopathy without gangrene (principal); I50.43 Acute on chronic combined systolic (congestive) and diastolic (congestive) heart failure; I13.0 Hypertensive heart and chronic kidney disease with heart failure and stage 1 through stage 4 chronic kidney disease, or unspecified chronic kidney disease; I42.9 Cardiomyopathy, unspecified; I73.9 Peripheral vascular disease, unspecified; E78.5 Hyperlipidemia, unspecified; I25.2 Old myocardial infarction; E11.22 Type 2 diabetes mellitus with diabetic chronic kidney disease; N18.9 Chronic kidney disease, unspecified; K74.60 Unspecified cirrhosis of liver; I25.10 Atherosclerotic heart disease of native coronary artery without angina pectoris
CPT/HCPCS: 36415; 37224; 75710; 80053; 82565; 85025; 85610; 85730; 87081; 99152; 99153; G0378; J2250; Q9967

== ENCOUNTER → 2019-12-26 | Outpatient (CLI) | payer MEDICARE, OTHER ==
[~2019-12-26] MED LIST changes: +GABA100C9 PO
[2019-12-26 12:56] LABS: Eosinophils # (auto) 0.8 10 ^3/uL (0-0.8); Hemoglobin 10.1 g/dL (13.5-17.5); Lymphocytes # (auto) 1.6 10 ^3/uL (0.4-5.4); Lymphocytes % (auto) 22.3 % (10.0-50.0); Neutrophils # (auto) 3.9 10 ^3/uL (1.6-8.6); White Blood Cell 7.3 10^3/uL (4.4-10.8)
[2019-12-26 12:58] LABS: Basophils # (auto) 0.1 10 ^3/uL (0-0.2); Basophils % (auto) 1.3 % (0.0-2.0); Eosinophils % (auto) 10.6 % (0.0-7.0); Hematocrit 29.2 % (41.0-53.0); Mean Corpuscular Hemoglobin 35.6 pg (28.0-32.0); Mean Corpuscular Hgb Conc. 34.4 g/dL (32.0-36.0); Mean Corpuscular Volume 103.6 fL (80.0-100.0); Monocytes % (auto) 13.2 % (0.0-12.0); Neutrophils % (auto) 52.6 % (37.0-80.0); Nucleated Red Blood Cells % 0.2 %; Platelet Count (auto) 306 10^3/uL (140-450); Red Blood Cells 2.82 10^6/uL (4.5-5.90); Red Cell Distribution Width 14.4 % (11.8-14.3)
[2019-12-26 13:32] LABS: Albumin 3.2 g/dL (3.4-5.0); Calcium 8.9 mg/dL (8.5-10.1); Potassium 4.6 mmol/L (3.5-5.1)
[2019-12-26 13:36] LABS: BUN/Creatinine Ratio 25.3; Bilirubin, Total 0.7 mg/dL (0.2-1.0); Total Protein 8.2 g/dL (6.4-8.2)
== END | disposition home or self-care (01) ==
LOC: LAB 12:31
PROVIDERS: ATTEND Internal Medicine Nephrology
DX: K74.60 Unspecified cirrhosis of liver (principal)
CPT/HCPCS: 36415; 80053; 85025

== ENCOUNTER → 2020-01-01 | Outpatient (CLI) | payer MEDICARE, OTHER ==
[2020-01-01 14:04] LABS: Calcium 8.9 mg/dL (8.5-10.1); Magnesium 2.2 mg/dL (1.6-2.6); Potassium 4.6 mmol/L (3.5-5.1)
[2020-01-01 14:10] LABS: BUN/Creatinine Ratio 29.6; Phosphorus 3.2 mg/dL (2.5-4.90)
== END | disposition home or self-care (01) ==
LOC: LAB 13:26
PROVIDERS: ATTEND Internal Medicine Nephrology
DX: N17.9 Acute kidney failure, unspecified (principal); N18.3 Chronic kidney disease, stage 3 (moderate)
CPT/HCPCS: 36415; 80048; 82306; 83735; 84100; 84550

== ENCOUNTER → 2020-01-01 | Emergency (ER) | payer MEDICARE, OTHER ==
[~2020-01-01] VITALS: Ht 182.9 cm; Wt 81.6 kg
[2020-01-01 14:26] VITALS: BP 127/72
[2020-01-01 18:50] LABS: Basophils # (auto) 0 10 ^3/uL (0-0.2); Eosinophils # (auto) 0.5 10 ^3/uL (0-0.8); Hemoglobin 9.6 g/dL (13.5-17.5); Lymphocytes # (auto) 1.3 10 ^3/uL (0.4-5.4); Monocytes # (auto) 0.7 10 ^3/uL (0-1.3); Neutrophils # (auto) 3.7 10 ^3/uL (1.6-8.6)
[2020-01-01 18:51] LABS: Basophils % (auto) 0.7 % (0.0-2.0); Eosinophils % (auto) 7.7 % (0.0-7.0); Hematocrit 27.9 % (41.0-53.0); Lymphocytes % (auto) 20.5 % (10.0-50.0); Mean Corpuscular Hemoglobin 34.8 pg (28.0-32.0); Mean Corpuscular Hgb Conc. 34.4 g/dL (32.0-36.0); Mean Corpuscular Volume 101.1 fL (80.0-100.0); Monocytes % (auto) 11.4 % (0.0-12.0); Neutrophils % (auto) 59.7 % (37.0-80.0); Nucleated Red Blood Cells % 0.1 %; Platelet Count (auto) 359 10^3/uL (140-450); Red Blood Cells 2.76 10^6/uL (4.5-5.90); Red Cell Distribution Width 13.6 % (11.8-14.3); White Blood Cell 6.2 10^3/uL (4.4-10.8)
[2020-01-01 19:02] LABS: Albumin 3.5 g/dL (3.4-5.0); Calcium 9.1 mg/dL (8.5-10.1); Potassium 4.3 mmol/L (3.5-5.1)
[2020-01-01 19:06] LABS: BUN/Creatinine Ratio 31.4; Total Protein 8.9 g/dL (6.4-8.2); Uric Acid 11.8 mg/dL (3.5-7.2)
== END | disposition home or self-care (01) ==
LOC: ER 13:42
DX: L03.115 Cellulitis of right lower limb (principal); M79.672 Pain in left foot; M79.671 Pain in right foot; J44.9 Chronic obstructive pulmonary disease, unspecified; E78.5 Hyperlipidemia, unspecified; I25.2 Old myocardial infarction; I13.0 Hypertensive heart and chronic kidney disease with heart failure and stage 1 through stage 4 chronic kidney disease, or unspecified chronic kidney disease; N18.9 Chronic kidney disease, unspecified; I50.9 Heart failure, unspecified; Z87.891 Personal history of nicotine dependence; Z79.82 Long term (current) use of aspirin; Z79.01 Long term (current) use of anticoagulants; Z79.899 Other long term (current) drug therapy
CPT/HCPCS: 36415; 80048; 80053; 82306; 83735; 84100; 84550; 85025; 93005; 93971

== ENCOUNTER 2020-01-08 11:37 | Inpatient (IN) | payer MEDICARE, OTHER ==
[~2020-01-08] VITALS: Ht 182.9 cm; Wt 83.0 kg
[~2020-01-08 11:37] MED LIST changes: -GABA100C9 PO
[2020-01-08] MEDS ORDERED: SODIUM CHLORIDE 0.9% 500 ML IVB ONE (11:45)
[2020-01-08 12:01] LABS: Basophils # (auto) 0.1 10 ^3/uL (0-0.2); Eosinophils # (auto) 0.1 10 ^3/uL (0-0.8); Hemoglobin 9.5 g/dL (13.5-17.5)
[2020-01-08 12:02] LABS: Basophils % (auto) 0.8 % (0.0-2.0); Eosinophils % (auto) 0.8 % (0.0-7.0); Hematocrit 26.9 % (41.0-53.0); Lymphocytes # (auto) 0.9 10 ^3/uL (0.4-5.4); Mean Corpuscular Hemoglobin 35.2 pg (28.0-32.0); Mean Corpuscular Hgb Conc. 35.4 g/dL (32.0-36.0); Mean Corpuscular Volume 99.6 fL (80.0-100.0); Monocytes # (auto) 1.6 10 ^3/uL (0-1.3); Monocytes % (auto) 15.9 % (0.0-12.0); Neutrophils # (auto) 7.4 10 ^3/uL (1.6-8.6); Neutrophils % (auto) 73.5 % (37.0-80.0); Platelet Count (auto) 312 10^3/uL (140-450); Red Cell Distribution Width 13.1 % (11.8-14.3); White Blood Cell 10.1 10^3/uL (4.4-10.8)
[2020-01-08 12:20] LABS: Albumin 2.6 g/dL (3.4-5.0); Anion Gap 8 (5-15); Blood Alcohol < 3.0 mg/dL (0-5); Blood Urea Nitrogen 41 mg/dL (7-18); Calcium 8.5 mg/dL (8.5-10.1); Carbon Dioxide 20 mmol/L (21-32); Chloride 105 mmol/L (98-107); Glucose 170 mg/dL (74-106); Magnesium 2.4 mg/dL (1.6-2.6); Potassium 4.5 mmol/L (3.5-5.1); Sodium 133 mmol/L (136-145)
[2020-01-08 12:26] LABS: Alanine Aminotransferase 30 U/L (16-61); Alkaline Phosphatase 156 U/L (45-117); Aspartate Aminotransferase 34 U/L (15-37); BUN/Creatinine Ratio 24.7; Bilirubin, Total 1.3 mg/dL (0.2-1.0); GFR African American 53 mL/min; GFR Non-African American 44 mL/min
[2020-01-08] MEDS ORDERED: SODIUM CHLORIDE 0.9% 1,000 ML IV ONE (14:00)
[2020-01-08] MEDS ORDERED: NITROGLYCERIN 0.4 MG SL TAB SL PRN (14:00)
[2020-01-08] MEDS ORDERED: DEXTROSE (50%) 50ML SYRG IV PRN (14:00)
[2020-01-08] MEDS ORDERED: MORPHINE SULF INJ 2 MG/ML SYRINGE 1ML IV PRN (14:00)
--- NOTE | 2020-01-08 14:32 | NUR ---
RECEIVED FROM CAROL CLEANING IN ER
--- NOTE | 2020-01-08 15:15 | NUR ---
Telemetry admit from ER AIME ABDI admitted to Telemetry unit after SBAR received. Patient oriented to Ledy Mckeon, primary RN, unit, room, bed, and unit policies regarding patient care and visiting hours. Patient now on continuous telemetry monitoring, tele box # [id number] and telemetry reading on arrival to unit is SINUS RHYTHM AT 81BPM. Patient placed on bedside oxygen, weighed by bedscale and encouraged to call if they need something. All questions and concerns addressed, patient verbalized understanding. Note: PT IS ALERT AND ORIENTED, NOTED SWELLING BOTH FEET AND ANKLE, NO SIGNS OF DISTRESS AT THIS TIME.
[2020-01-08 16:00] VITALS: BP 103/61
--- NOTE | 2020-01-08 16:30 | NUR ---
MRSA SWAB AND URINE SAMPLE SENT TO LAB.
[2020-01-08 16:42] VITALS: BP 103/61
[2020-01-08] MEDS: InsuLIN REG 1unit/0.01ml Soln (100units/ml) SC SCH ×2 (16:46→21:56)
[2020-01-08] MEDS: ACCU-CHEK COMFORT CURVE STRIP VI SCH ×2 (16:47→21:56)
[2020-01-08 17:04] LABS: Urine Bacteria NONE SEEN /hpf (None Seen); Urine Blood TRACE /uL (Negative); Urine Hyaline Cast FEW /lpf (0 - 2); Urine Mucus FEW (None Seen); Urine Specific Gravity 1.012 (1.001-1.035); Urine WBC 1 /hpf (0 - 3)
[2020-01-08] MEDS ORDERED: GABA100C9 PO (17:05)
[2020-01-08 17:12] LABS: Barbiturate Scree,Urine NEGATIVE (NEGATIVE); Benzodiazephine Screen, Urine NEGATIVE (NEGATIVE); Cannabinoid Screen, Urine POSITIVE (NEGATIVE); Cocaine Screen, Urine NEGATIVE (NEGATIVE); Opiate Scree,Urine NEGATIVE (NEGATIVE); Phencyclidine Screen, Urine NEGATIVE (NEGATIVE)
[2020-01-08 17:20] LABS: Amphetamine Screen, Urine NEGATIVE (NEGATIVE)
[2020-01-08 17:21] LABS: Alcohol, Urine < 3.0 mg/dL (0-5)
--- NOTE | 2020-01-08 20:04 | NUR ---
HOSPITALIST PAGED PATIENT REPORTING PAIN RATED 8/10 TO LOWER EXTREMITIES. NO PAIN MEDICATION ORDERED AT THIS TIME.
[2020-01-08] MEDS: HYDROcodone-ACET 5/325MG TAB PO PRN (20:49)
[2020-01-08] MEDS: GABAPENTIN 300 MG CAP PO SCH (21:53)
[2020-01-08] MEDS: ATORVASTATIN 20 MG TAB PO SCH (21:53)
[2020-01-08] MEDS: CARVEDILOL 3.125 MG TAB PO SCH (21:54)
--- NOTE | 2020-01-08 22:03 | NUR ---
HOSPITALIST PAGED PATIENT REQUESTING SLEEPING PILL
[2020-01-08] MEDS: TEMAZEPAM 15 MG CAP PO PRN (22:40)
[2020-01-08 22:54] VITALS: BP 112/62
[2020-01-09] MEDS: HYDROcodone-ACET 5/325MG TAB PO PRN ×4 (03:21→22:11)
[2020-01-09 05:07] VITALS: BP 102/61
[2020-01-09] MEDS: ACCU-CHEK COMFORT CURVE STRIP VI SCH ×4 (06:13→21:41)
[2020-01-09] MEDS: InsuLIN REG 1unit/0.01ml Soln (100units/ml) SC SCH ×5 (06:13→22:00)
--- NOTE | 2020-01-09 07:30 | NUR ---
Opening Shift Note Assumed care of patient, awake and alert. No S/S of distress/SOB or pain. Bed in lowest and locked position with side rails up x2 and call light within reach. Instructed on POC and to call for assist PRN, will continue to monitor for changes Q1hr and PRN.
[2020-01-09 09:00] VITALS: BP 120/67
--- NOTE | 2020-01-09 09:10 | NUR ---
SPOKE TO DR. EDGE. NEW ORDERS RECEIVED, READ BACK AND VERIFIED. SEE EMR FOR ORDERS.
[2020-01-09] MEDS: ASPirin 81 mg TAB PO SCH (09:50)
[2020-01-09] MEDS: CARVEDILOL 3.125 MG TAB PO SCH (09:50)
[2020-01-09] MEDS: GABAPENTIN 300 MG CAP PO SCH ×2 (09:51→21:33)
[2020-01-09] MEDS: FAMOTIDINE 20 MG TAB PO SCH (09:51)
[2020-01-09] MEDS: CLOPIDOGREL BISULFATE 75 MG TAB PO SCH (09:52)
[2020-01-09] MEDS ORDERED: FUROSEMIDE 40 MG TAB PO SCH (10:00)
[2020-01-09] MEDS: LOSARTAN POTASSIUM 25 MG TAB PO SCH (10:00)
--- NOTE | 2020-01-09 12:25 | NUR ---
SPOKE TO DR. JEFFRIES REGARDING PATIENTS DIET. NEW ORDERS RECEIVED, READ BACK AND VERIFIED. SEE EMR FOR ORDERS. Addendum: 01/09/20 at 1253 by LAYNE CHILDS RN RN SPOKE TO DR. JEFFRIES REGARDING PATIENTS ABILITY TO WALK. NEW ORDERS RECEIVED, READ BACK AND VERIFIED. SEE EMR FOR ORDERS.
[2020-01-09 13:00] VITALS: BP 90/61
--- NOTE | 2020-01-09 13:53 | NUR ---
assessment re: ss consult unable to care for himself Patient is a 69 year old male who is alert and oriented. Patients cognitive abilities are intact. Prior to admission patient lived home alone and functioned with assistance. Per patient he is weak and now need assistance. Patient may benefit from SNF for PT on discharge. Patient prefers [facility]. Patients new PCP is Dr Griffin. Patient was on service with [facility]. Patient would like [facility] information. I will bring back info today for patient. I informed patient he has a right to speak to a health and social care teacher regarding all care. I informed patient he has a right to participate in any and all discharge planning. Patient does not have a POA and advanced directive. I have offered patient information on POA and advanced directives. I informed the patient the advantages and benefits of having an Advanced Directive. Patient verbalized understanding and agreed to discharge plan. Addendum: 01/09/20 at 1356 by Milly SERRANO Amended: Links added.
[2020-01-09] MEDS ORDERED: COLCHICINE 0.6 MG CAP PO ONE (14:30)
[2020-01-09] MEDS ORDERED: predniSONE 20 MG TAB PO ONE (14:30)
--- NOTE | 2020-01-09 14:30 | NUR ---
PAGED PHYSICAL THERAPY.
[2020-01-09 16:33] VITALS: BP 153/87
--- NOTE | 2020-01-09 19:45 | NUR ---
Opening Shift Note Assumed care of patient, awake and alert. No S/S of distress/SOB or pain. Instructed on POC and to call for assist PRN, patient verbalized understanding, call light within reach, will continue to monitor for changes Q1hr and PRN.
[2020-01-09] MEDS: ALLOPURINOL 300 MG TAB PO SCH (21:33)
[2020-01-09] MEDS: ATORVASTATIN 20 MG TAB PO SCH (21:33)
[2020-01-09] MEDS: TEMAZEPAM 15 MG CAP PO PRN (21:41)
[2020-01-09 21:53] VITALS: BP 102/62
--- NOTE | 2020-01-09 22:30 | NUR ---
Patient's blood sugar is 191, refused Insulin at this time. Per patient, he just ate apple sauce, will continue to monitor
--- NOTE | 2020-01-10 00:05 | NUR ---
Instructed patient to be NPO after MN for Arthrocentesis today, patient verbalized understanding
[2020-01-10 05:08] VITALS: BP 104/57
[2020-01-10] MEDS: ACCU-CHEK COMFORT CURVE STRIP VI SCH ×4 (05:33→22:21)
[2020-01-10] MEDS: InsuLIN REG 1unit/0.01ml Soln (100units/ml) SC SCH ×4 (05:33→22:00)
[2020-01-10 05:46] LABS: Basophils # (auto) 0 10 ^3/uL (0-0.2); Eosinophils # (auto) 0 10 ^3/uL (0-0.8); Eosinophils % (auto) 0.1 % (0.0-7.0); Lymphocytes # (auto) 0.5 10 ^3/uL (0.4-5.4); Monocytes # (auto) 0.5 10 ^3/uL (0-1.3); Neutrophils # (auto) 3.9 10 ^3/uL (1.6-8.6); Neutrophils % (auto) 78.8 % (37.0-80.0)
[2020-01-10 05:49] LABS: Basophils % (auto) 0.2 % (0.0-2.0); Hematocrit 23.3 % (41.0-53.0); Hemoglobin 8.2 g/dL (13.5-17.5); Lymphocytes % (auto) 10.6 % (10.0-50.0); Mean Corpuscular Hemoglobin 35.4 pg (28.0-32.0); Mean Corpuscular Hgb Conc. 35.3 g/dL (32.0-36.0); Mean Corpuscular Volume 100.2 fL (80.0-100.0); Monocytes % (auto) 10.3 % (0.0-12.0); Platelet Count (auto) 296 10^3/uL (140-450); Red Blood Cells 2.33 10^6/uL (4.5-5.90); Red Cell Distribution Width 12.7 % (11.8-14.3)
[2020-01-10] MEDS: HYDROcodone-ACET 5/325MG TAB PO PRN ×2 (05:51→12:03)
[2020-01-10 06:00] LABS: INR 1.06 (0.9-1.15); Partial Thromboplastin Time 27.8 sec (23.64-32.05)
[2020-01-10 06:09] LABS: Potassium 4.4 mmol/L (3.5-5.1)
[2020-01-10 06:16] LABS: Albumin 2.3 g/dL (3.4-5.0); BUN/Creatinine Ratio 39.4; Bilirubin, Total 0.7 mg/dL (0.2-1.0); Calcium 8.3 mg/dL (8.5-10.1); Total Protein 7.3 g/dL (6.4-8.2)
[2020-01-10 09:00] VITALS: BP 95/62
--- NOTE | 2020-01-10 09:02 | NUR ---
PAGED DR. JEFFRIES. AWAITING CALL BACK.
[2020-01-10] MEDS: LOSARTAN POTASSIUM 25 MG TAB PO SCH (10:00)
[2020-01-10] MEDS: GABAPENTIN 300 MG CAP PO SCH ×2 (10:17→22:21)
[2020-01-10] MEDS: COLCHICINE 0.6 MG CAP PO SCH (10:17)
[2020-01-10] MEDS: predniSONE 20 MG TAB PO SCH (10:17)
[2020-01-10] MEDS: ASPirin 81 mg TAB PO SCH (10:17)
[2020-01-10] MEDS: FAMOTIDINE 20 MG TAB PO SCH (10:18)
[2020-01-10] MEDS: ALLOPURINOL 300 MG TAB PO SCH ×2 (10:18→22:21)
--- NOTE | 2020-01-10 10:31 | NUR ---
PAGED DR. JEFFRIES. AWAITING CALL BACK.
--- NOTE | 2020-01-10 10:33 | NUR ---
RECEIVED CALL BACK FROM DR. JEFFRIES. RN UPDATED DR. JEFFRIES ON THE PATIENTS RADIOLOGY CONSULT AND THE PATIENTS PLAVIX. AWARE. NEW ORDERS RECEIVED, READ BACK AND VERIFIED. SEE EMR FOR ORDERS. Addendum: 01/10/20 at 1725 by LAYNE CHILDS RN RN PER DR. JEFFRIES, DO NOT HOLD PLAVIX.
[2020-01-10] MEDS: CLOPIDOGREL BISULFATE 75 MG TAB PO SCH (12:03)
--- NOTE | 2020-01-10 12:14 | NUR ---
SPOKE TO PLANT AND MACHINERY VALUERKelly HOLCOMB. RN UPDATED PLANT AND MACHINERY VALUERKelly HOLCOMB OF PATIENTS TELEMETRY READINGS. [facility] AWARE. NO NEW ORDERS RECEIVED AT THIS TIME.
[2020-01-10 13:00] VITALS: BP 114/68
[2020-01-10 16:44] VITALS: BP 116/69
--- NOTE | 2020-01-10 19:30 | NUR ---
Opening Shift Note Assumed care of patient, awake and alert. No S/S of distress/SOB. Instructed on POC and to call for assist PRN, patient verbalized understanding, call light within reach, will continue to monitor for changes Q1hr and PRN.
[2020-01-10 22:00] VITALS: BP 121/61
[2020-01-10] MEDS: ATORVASTATIN 20 MG TAB PO SCH (22:21)
[2020-01-10] MEDS: TEMAZEPAM 15 MG CAP PO PRN (22:46)
[2020-01-11 05:25] VITALS: BP 106/59
[2020-01-11] MEDS: InsuLIN REG 1unit/0.01ml Soln (100units/ml) SC SCH ×4 (06:22→21:12)
[2020-01-11] MEDS: ACCU-CHEK COMFORT CURVE STRIP VI SCH ×4 (06:22→21:11)
--- NOTE | 2020-01-11 07:20 | NUR ---
Opening Note Assumed pt care from [facility] nurse. Pt is a/ox4 with no s/s of distress or SOB. Pt is currently laying in bed with mild c/o discomfort to both legs. Discussed POC with pt; pt verbalized understanding. Safety measures maintained with call light within reach, bed in lowest position and side rails up. Will continue to monitor.
[2020-01-11] MEDS: CLOPIDOGREL BISULFATE 75 MG TAB PO SCH (08:56)
[2020-01-11] MEDS: FAMOTIDINE 20 MG TAB PO SCH (08:56)
[2020-01-11] MEDS: GABAPENTIN 300 MG CAP PO SCH ×2 (08:56→21:10)
[2020-01-11] MEDS: COLCHICINE 0.6 MG CAP PO SCH (08:56)
[2020-01-11] MEDS: LOSARTAN POTASSIUM 25 MG TAB PO SCH (08:57)
[2020-01-11] MEDS: predniSONE 20 MG TAB PO SCH (08:59)
[2020-01-11 09:00] VITALS: BP 121/69
[2020-01-11] MEDS: ALLOPURINOL 300 MG TAB PO SCH ×2 (09:00→21:10)
[2020-01-11] MEDS: ASPirin 81 mg TAB PO SCH (09:00)
--- NOTE | 2020-01-11 09:56 | NUR ---
Pt C/O Bilateral Ankle pain Pt c/o ankle pain, 06/26. Provided pt with education regarding need to hold pain medication due to elevated LFTs. Offered pt hot pack to alleviate discomfort. Pt requested ice packs. Will continue to monitor and reinforce education.
--- NOTE | 2020-01-11 11:10 | NUR ---
Dr Quintana at Bedside MD to see pt. Discussed with her the Ortho consult. MD aware. No new orders at this time. Will continue to monitor.
[2020-01-11 13:00] VITALS: BP 110/64
--- NOTE | 2020-01-11 15:11 | NUR ---
Nutrition Assessment Notes Please refer to link for full assessment notes. Est energy needs: 7865-0483 kcals (25-30 kcal/kgBW) Est protein needs: 82-90 gms/day (1.0-1.1 gm/kgBW) Will continue to monitor and reassess prn. Addendum: 01/11/20 at [address] Amended: Links added.
--- NOTE | 2020-01-11 16:55 | NUR ---
Report Given Report given to [place]. Pt is a/ox4 with no s/s of distress. All questions were answered.
[2020-01-11 17:00] VITALS: BP 122/72
--- NOTE | 2020-01-11 20:00 | NUR ---
Opening Shift Note Assumed care of patient, awake and alert. No S/S of distress/SOB or pain. Instructed on POC and to call for assist PRN, will continue to monitor for changes Q1hr and PRN.Requesting for wheelchair to move around, given.
[2020-01-11] MEDS: ATORVASTATIN 20 MG TAB PO SCH (21:11)
[2020-01-11] MEDS: TEMAZEPAM 15 MG CAP PO PRN (21:40)
[2020-01-11 22:00] VITALS: BP 129/77
[2020-01-12 05:00] VITALS: BP 128/75
[2020-01-12 06:06] LABS: Basophils # (auto) 0 10 ^3/uL (0-0.2); Basophils % (auto) 0.5 % (0.0-2.0); Eosinophils # (auto) 0.1 10 ^3/uL (0-0.8); Monocytes # (auto) 0.6 10 ^3/uL (0-1.3); Neutrophils # (auto) 4.2 10 ^3/uL (1.6-8.6); Nucleated Red Blood Cells % 0.1 %; Red Cell Distribution Width 12.7 % (11.8-14.3)
[2020-01-12 06:08] LABS: Eosinophils % (auto) 0.9 % (0.0-7.0); Hematocrit 23.4 % (41.0-53.0); Hemoglobin 8.2 g/dL (13.5-17.5); Lymphocytes # (auto) 1.2 10 ^3/uL (0.4-5.4); Mean Corpuscular Hemoglobin 35.5 pg (28.0-32.0); Mean Corpuscular Hgb Conc. 35.2 g/dL (32.0-36.0); Mean Corpuscular Volume 100.8 fL (80.0-100.0); Monocytes % (auto) 10.3 % (0.0-12.0); Neutrophils % (auto) 68.3 % (37.0-80.0); Platelet Count (auto) 347 10^3/uL (140-450); Red Blood Cells 2.32 10^6/uL (4.5-5.90); White Blood Cell 6.1 10^3/uL (4.4-10.8)
[2020-01-12 06:10] LABS: Potassium 4.3 mmol/L (3.5-5.1)
[2020-01-12 06:17] LABS: Calcium 8.5 mg/dL (8.5-10.1)
[2020-01-12] MEDS: InsuLIN REG 1unit/0.01ml Soln (100units/ml) SC SCH ×4 (07:00→22:23)
--- NOTE | 2020-01-12 07:25 | NUR ---
Report given to Deborah Robles, to follow-up ECHO ,still active.
--- NOTE | 2020-01-12 07:26 | NUR ---
Assumed care of patient
[2020-01-12] MEDS: ACCU-CHEK COMFORT CURVE STRIP VI SCH ×4 (07:27→21:49)
[2020-01-12 07:58] VITALS: BP 119/70
--- NOTE | 2020-01-12 09:10 | NUR ---
RE: patient's statement Patient stated to this RN "All it would take is for me to take all of my pills and OD. With my liver and kidney function, it wouldn't take that much. If I can't walk, I'm not going to live like this." This RN asked patient if he had a plan to kill himself. Patient stated "Well I can't do anything in here and when I get out I have some things that I have to do for my kids. I'm not going to live like this." This RN notified Mariely, charge master specialist. Patient transferred to room 280A and placed with a sitter for safety.
--- NOTE | 2020-01-12 09:11 | NUR ---
Patient transferred to room 280A - sitter at bedside for safety All of patient's belongings transferred with the patient.
--- NOTE | 2020-01-12 09:15 | NUR ---
Abbey SWEENEY RE: patient's statement Paged Dr. Tobias.
--- NOTE | 2020-01-12 09:19 | NUR ---
Updated Dr. Tobias RE: patient's statement Order received and read back to verify.
--- NOTE | 2020-01-12 10:30 | NUR ---
MD was at bedside - Dr. Chilango Hightower This RN was at bedside. MD aware of patient's suicidal statement. MD verbalized understanding. Order received to cancel tele-psych. Order read back to verify. Continue to monitor patient and maintain patient with sitter for safety.
[2020-01-12] MEDS: predniSONE 20 MG TAB PO SCH (10:33)
[2020-01-12] MEDS: CLOPIDOGREL BISULFATE 75 MG TAB PO SCH (10:33)
[2020-01-12] MEDS: GABAPENTIN 300 MG CAP PO SCH ×2 (10:33→21:49)
[2020-01-12] MEDS: ASPirin 81 mg TAB PO SCH (10:33)
[2020-01-12] MEDS: ALLOPURINOL 300 MG TAB PO SCH (10:33)
[2020-01-12] MEDS: COLCHICINE 0.6 MG CAP PO SCH ×2 (10:33→21:47)
[2020-01-12] MEDS: MORPHINE SULF INJ 2 MG/ML SYRINGE 1ML IV PRN ×2 (10:34→15:31)
[2020-01-12] MEDS: LOSARTAN POTASSIUM 25 MG TAB PO SCH (10:34)
[2020-01-12] MEDS: FAMOTIDINE 20 MG TAB PO SCH (10:40)
--- NOTE | 2020-01-12 11:48 | NUR ---
Patient ambulating with PT using a standard rolling walker as assistive device.
[2020-01-12 12:35] VITALS: BP 119/66
--- NOTE | 2020-01-12 15:23 | NUR ---
RE: Pain - notified MD Notified Dr. Chilango Hightower of patient's pain. Orders received and read back to verify.
[2020-01-12] MEDS ORDERED: methylPREDNISolone SOD SUCC 125 MG/2 ML VL IV ONE (15:30)
[2020-01-12 17:00] VITALS: BP 125/79
--- NOTE | 2020-01-12 18:42 | NUR ---
No further statements made No further statements made to this RN RE: suicidal ideations.
--- NOTE | 2020-01-12 18:43 | NUR ---
Closing note Patient resting in bed with even and unlabored respirations, no distress noted. Fall precautions in place with call light within reach. Sitter at bedside for safety.
--- NOTE | 2020-01-12 19:28 | NUR ---
Care endorsed to CAROL Valdez.
--- NOTE | 2020-01-12 19:32 | NUR ---
OPENING SHIFT NOTE: PATIENT IS AWAKE, ALERT AND ORIENTED X 4, NO S/S OF SOB/DISTRESS, COMPLAIN OF PAIN IN LOWER FEET BILATERALLY 7/10, WILL MEDICATE FOR PAIN PRN. BED IS LOW, LOCKED, WITH CALL CH WITHIN REACH, AND SITTER IS AT THE BEDSIDE. INSTRUCTED ON POC AND ENCOURAGED TO CALL FOR ASSISTANCE. WILL CONTINUE TO MONITOR Q 1HR AND PRN.
[2020-01-12 20:00] VITALS: BP 115/60
--- NOTE | 2020-01-12 21:30 | NUR ---
IV DISCONTINUED/NEW IV INITIATED: LEFT FOREARM 18 GAUGE IV LEAKING, IV REMOVED, CATHETER TIP INTACT, PRESSURE DRESSING APPLIED, PATIENT TOLERATED WELL. NEW LEFT FOREARM 20 GAUGE IV INITIATED, PATIENT TOLERATED WELL.
[2020-01-12] MEDS: methylPREDNISolone SOD SUCC 125 MG/2 ML VL IV SCH (21:46)
[2020-01-12] MEDS: TEMAZEPAM 15 MG CAP PO PRN (21:48)
[2020-01-12] MEDS: ATORVASTATIN 20 MG TAB PO SCH (21:49)
[2020-01-12 22:10] VITALS: BP 115/60
[2020-01-13] MEDS: MORPHINE SULF INJ 2 MG/ML SYRINGE 1ML IV PRN ×2 (01:59→13:10)
[2020-01-13 03:45] VITALS: BP 121/70
[2020-01-13] MEDS: ACCU-CHEK COMFORT CURVE STRIP VI SCH ×4 (07:21→21:54)
[2020-01-13] MEDS: InsuLIN REG 1unit/0.01ml Soln (100units/ml) SC SCH ×4 (07:25→21:55)
--- NOTE | 2020-01-13 08:00 | NUR ---
Morning note Patient resting in bed with even and unlabored respirations, no distress noted. Instructed patient on POC, fall precautions and to call for assistance as needed. Patient verbalized understanding. Fall precautions in place with call light within reach.
[2020-01-13 09:00] VITALS: BP 130/64
[2020-01-13] MEDS: GABAPENTIN 300 MG CAP PO SCH ×2 (09:50→21:54)
[2020-01-13] MEDS: methylPREDNISolone SOD SUCC 125 MG/2 ML VL IV SCH ×2 (09:50→21:54)
[2020-01-13] MEDS: CLOPIDOGREL BISULFATE 75 MG TAB PO SCH (09:50)
[2020-01-13] MEDS: ASPirin 81 mg TAB PO SCH (09:50)
[2020-01-13] MEDS: ALLOPURINOL 300 MG TAB PO SCH (09:50)
[2020-01-13] MEDS: COLCHICINE 0.6 MG CAP PO SCH ×2 (09:51→21:54)
[2020-01-13] MEDS: LOSARTAN POTASSIUM 25 MG TAB PO SCH (09:51)
[2020-01-13] MEDS: FAMOTIDINE 20 MG TAB PO SCH (09:53)
--- NOTE | 2020-01-13 10:37 | NUR ---
RE: telemetry reading This RN received a telemetry reading of 5-beats of V-tach. This RN was not verbally notified of arrhythmia. This RN notified Dr. Chilango Hightower. verbalized understanding. Continue to monitor as ordered. Patient denies symptoms.
[2020-01-13 13:00] VITALS: BP 143/75
--- NOTE | 2020-01-13 15:12 | NUR ---
Patient resting in bed with eyes closed, respirations even and unlabored on room air; no distress noted. Call light within reach.
--- NOTE | 2020-01-13 16:02 | NUR ---
Patient resting in bed with eyes closed, respirations even and unlabored on room air; no distress noted. Call light within reach.
[2020-01-13 17:20] VITALS: BP 136/67
--- NOTE | 2020-01-13 19:30 | NUR ---
Care endorsed to CAROL Tirado.
--- NOTE | 2020-01-13 19:58 | NUR ---
Opening Shift Note Assumed care of patient, awake and alert x4. No S/S of distress/SOB or pain. Call light is within reach, fall precautions are in place, bed is in the lowest position. Sitter is at bedside for safety. Instructed on POC and to call for assist PRN. All questions and concerns answered, will continue to monitor for changes Q1hr and PRN.
[2020-01-13] MEDS: ATORVASTATIN 20 MG TAB PO SCH (21:54)
[2020-01-13] MEDS: TEMAZEPAM 15 MG CAP PO PRN (22:00)
[2020-01-13 22:34] VITALS: BP 126/68
[2020-01-14 05:56] VITALS: BP 122/71
[2020-01-14] MEDS: MORPHINE SULF INJ 2 MG/ML SYRINGE 1ML IV PRN ×2 (06:28→18:42)
--- NOTE | 2020-01-14 06:28 | NUR ---
PAIN Morphine given for pain to the right foot 4/0-10. Will reassess.
[2020-01-14] MEDS: ACCU-CHEK COMFORT CURVE STRIP VI SCH ×4 (06:54→21:58)
[2020-01-14] MEDS: InsuLIN REG 1unit/0.01ml Soln (100units/ml) SC SCH ×4 (06:55→21:59)
--- NOTE | 2020-01-14 06:55 | NUR ---
PAIN REASSESSMENT Pain is now 0/0-10. Will endorse care to dayshift RN.
--- NOTE | 2020-01-14 07:15 | NUR ---
Opening Shift Note Assumed care of patient, awake and alert. No S/S of distress/SOB or pain. Instructed on POC and to call for assist PRN, will continue to monitor for changes Q1hr and PRN. Bed locked in lowest position with two side rails up and call light in reach.
[2020-01-14 08:00] VITALS: BP 138/74
[2020-01-14 09:00] VITALS: BP 138/74
[2020-01-14] MEDS: FAMOTIDINE 20 MG TAB PO SCH (10:58)
[2020-01-14] MEDS: methylPREDNISolone SOD SUCC 125 MG/2 ML VL IV SCH ×2 (10:58→21:38)
[2020-01-14] MEDS: ASPirin 81 mg TAB PO SCH (10:59)
[2020-01-14] MEDS: CLOPIDOGREL BISULFATE 75 MG TAB PO SCH (10:59)
[2020-01-14] MEDS: ALLOPURINOL 300 MG TAB PO SCH (10:59)
[2020-01-14] MEDS: COLCHICINE 0.6 MG CAP PO SCH ×2 (10:59→21:39)
[2020-01-14] MEDS: GABAPENTIN 300 MG CAP PO SCH ×2 (10:59→21:39)
[2020-01-14] MEDS: LOSARTAN POTASSIUM 25 MG TAB PO SCH (11:01)
[2020-01-14] MEDS ORDERED: PANTOPRAZOLE 40 MG TAB PO ONE (12:30)
[2020-01-14 17:00] VITALS: BP 140/78
--- NOTE | 2020-01-14 17:12 | NUR ---
re-assessment Per consult patient requesting new PCP. Milly Ceja set patient up with DR Griffin last week. Addendum: 01/14/20 at 1713 by Milly Vieira Amended: Links added.
--- NOTE | 2020-01-14 20:00 | NUR ---
RECEIVED PATIENT FROM DAY SHIFT RN. PATIENT RESTING IN BED. NO S/S OF DISTRESS NOTED. C/O PAIN @ 4/10 AFTER MEDICATION GIVEN EARLIER. REINFORCED SCHEDULE OF PAIN MANAGEMENT, WILL COME BACK FOR PAIN MEDICATION LATER WHEN THE TIME IS DUE AND PER PATIENT REQUESTS. POC INSTRUCTED AND ENCOURAGED PATIENT TO CALL FOR LARRY CAR OPERATOR IF NEEDED. BED IN LOWEST POSITION WITH SIDE RAILS UP X 2. CALL CH WITHIN REACH. ALARM ON. SITTER AT BEDSIDE FOR SAFETY. CONTINUE TO MONITOR FOR CHANGES Q1H AND PRN.
[2020-01-14] MEDS: ATORVASTATIN 20 MG TAB PO SCH (21:39)
[2020-01-14 21:51] VITALS: BP 128/66
[2020-01-14] MEDS: TEMAZEPAM 15 MG CAP PO PRN (21:59)
--- NOTE | 2020-01-14 22:00 | NUR ---
ACCU-CHECK, BS 204. INSULIN GIVEN ORDERED. CONTINUE TO MONITOR.
--- NOTE | 2020-01-15 02:49 | NUR ---
PATIENT SLEEPING. NO S/S OF DISTRESS NOTED. CONTINUE TO MONITOR.
[2020-01-15 05:10] VITALS: BP 135/75
[2020-01-15 05:40] LABS: Basophils # (auto) 0 10 ^3/uL (0-0.2); Basophils % (auto) 0.2 % (0.0-2.0); Eosinophils # (auto) 0 10 ^3/uL (0-0.8); Hematocrit 26.2 % (41.0-53.0); Lymphocytes # (auto) 0.6 10 ^3/uL (0.4-5.4); Lymphocytes % (auto) 6.1 % (10.0-50.0); Mean Corpuscular Hemoglobin 33.7 pg (28.0-32.0); Mean Corpuscular Hgb Conc. 34.3 g/dL (32.0-36.0); Mean Corpuscular Volume 98.3 fL (80.0-100.0); Monocytes # (auto) 0.2 10 ^3/uL (0-1.3); Monocytes % (auto) 1.9 % (0.0-12.0); Neutrophils # (auto) 9.1 10 ^3/uL (1.6-8.6); Neutrophils % (auto) 91.8 % (37.0-80.0); Platelet Count (auto) 396 10^3/uL (140-450); Red Blood Cells 2.66 10^6/uL (4.5-5.90); Red Cell Distribution Width 13.1 % (11.8-14.3); White Blood Cell 9.9 10^3/uL (4.4-10.8)
[2020-01-15] MEDS: MORPHINE SULF INJ 2 MG/ML SYRINGE 1ML IV PRN ×2 (05:43→09:53)
--- NOTE | 2020-01-15 05:43 | NUR ---
PATIENT C/O PAIN @ 02/23. MEDICATED PATIENT ORDERED. CONTINUE TO MONITOR
[2020-01-15 05:55] LABS: BUN/Creatinine Ratio 37.2; CRP High Sensitivity 0.57 mg/dL (< 0.3); Calcium 8.2 mg/dL (8.5-10.1); Magnesium 2.2 mg/dL (1.6-2.6)
--- NOTE | 2020-01-15 06:10 | NUR ---
REASSESSED PAIN LEVEL 0/10. CONTINUE TO MONITOR.
[2020-01-15] MEDS: InsuLIN REG 1unit/0.01ml Soln (100units/ml) SC SCH ×3 (06:35→17:07)
[2020-01-15] MEDS: ACCU-CHEK COMFORT CURVE STRIP VI SCH ×3 (06:35→17:03)
--- NOTE | 2020-01-15 06:36 | NUR ---
ACCU-CHECK, BS 208. INSULIN GIVEN ORDERED. CONTINUE TO MONITOR.
[2020-01-15 08:00] VITALS: BP 127/79
[2020-01-15 08:39] VITALS: BP 127/79
[2020-01-15] MEDS: ASPirin 81 mg TAB PO SCH (09:53)
[2020-01-15] MEDS: CLOPIDOGREL BISULFATE 75 MG TAB PO SCH (09:53)
[2020-01-15] MEDS: FAMOTIDINE 20 MG TAB PO SCH (09:53)
[2020-01-15] MEDS: methylPREDNISolone SOD SUCC 125 MG/2 ML VL IV SCH (09:53)
[2020-01-15] MEDS: GABAPENTIN 300 MG CAP PO SCH (09:54)
[2020-01-15] MEDS: COLCHICINE 0.6 MG CAP PO SCH (09:54)
[2020-01-15] MEDS: ALLOPURINOL 300 MG TAB PO SCH (09:54)
[2020-01-15] MEDS: LOSARTAN POTASSIUM 25 MG TAB PO SCH (09:56)
[2020-01-15] MEDS ORDERED: PANTOPRAZOLE 40 MG TAB PO SCH (10:00)
[2020-01-15] MEDS ORDERED: methylPREDNISolone SOD SUCC 40 MG/ML VL IV SCH ×2 (10:15→22:00)
[2020-01-15] MEDS ORDERED: D5W/SOD CHLO 0.9% 1,000 ML IV ONE (10:15)
--- NOTE | 2020-01-15 12:07 | NUR ---
DR. HYLTON AT BEDSIDE. POC DISCUSSED WITH PT. D5 NS GIVEN @ 50ML/HR ORDERED. WILL CONTINUE CARE.
[2020-01-15] MEDS ORDERED: SODIUM BICARBONATE 650 MG TAB PO ONE (12:30)
[2020-01-15 12:44] VITALS: BP 139/76
[2020-01-15] MEDS ORDERED: LACTULOSE 20Gm/30ML SOLN PO PRN (13:00)
--- NOTE | 2020-01-15 14:00 | NUR ---
re-assessment Per consult, safe dc plan. Patient has a safe discharge plan. Patient has agreed to discharging to [facility]. Dr Griffin has been notified. Addendum: 01/15/20 at 1703 by Milly Vieira Amended: Links added.
--- NOTE | 2020-01-15 14:15 | NUR ---
re-assessment Per consult SNF placement for rehab. Patient agrees to SNF. Patient request [facility]. MD order has been sent to [facility]. Waiting for reply back now. Addendum: 01/15/20 at 1416 by Milly Vieira Amended: Links added.
--- NOTE | 2020-01-15 15:51 | NUR ---
Pt decided to go to [facility] for rehab. Let Nurse Surinder know about the arrangements. Pt will be picked by transport at 6:30. Pt will be going to room [address] Roblero will follow. .
--- NOTE | 2020-01-15 16:00 | NUR ---
CALLED [facility] VIA [phone], REPORT GIVEN TO RICARDO MEDINA. ALL QUESTIONS AND CONCERNS ADDRESSED.
[2020-01-15 16:10] VITALS: BP 139/76
--- NOTE | 2020-01-15 16:13 | NUR ---
Received Social Service consult to transfer pt to [facility]. Pt agreed to this. Pt will be transported by wheelchair to Room 303 at [facility]. Dr Jiang will be following the pt. The phone number is [phone] for . Informed the nurse Kyler who took all the information down and was calling the facility for report.
--- NOTE | 2020-01-15 19:10 | NUR ---
TRANSPORTATION DELAY PER [facility] DUE TO ACCIDENT ON [facility]-WAY. WILL BE HERE TO [facility] TENDER PT SOON.
--- NOTE | 2020-01-15 19:37 | NUR ---
Discharge instructions PREPARED BY DAY SHIFT RN AND given as ordered. Encourage to follow up with PMD as instructed. All questions and concerns addressed. Patient verbalized understanding. Medication reconciliation form completed and copy given to patient. Home medications held in Pharmacy returned to patient. IV ACCESS WITH PATIENT TO [facility], ROOM 303 BED A. Telemetry unit returned to ICU. Patient taken to vehicle via wheelchair with all personal belongings, [facility]. No distress noted at time of departure.
[2020-01-15] MEDS ORDERED: SODIUM BICARBONATE 650 MG TAB PO SCH (22:00)
== END 2020-01-15 19:10 | DRG 554 ==
LOC: EDBD 11:37 → ER 11:37 → TELE 11:38 → TELE-WESTW 15:11
PROVIDERS: ADMIT Nurse Practitioner Acute Care; ATTEND Internal Medicine
DX: M10.9 Gout, unspecified (principal); I50.42 Chronic combined systolic (congestive) and diastolic (congestive) heart failure; I13.0 Hypertensive heart and chronic kidney disease with heart failure and stage 1 through stage 4 chronic kidney disease, or unspecified chronic kidney disease; E44.0 Moderate protein-calorie malnutrition; E87.2 Acidosis; M25.571 Pain in right ankle and joints of right foot; R55 Syncope and collapse; I25.5 Ischemic cardiomyopathy; J44.9 Chronic obstructive pulmonary disease, unspecified; N18.3 Chronic kidney disease, stage 3 (moderate); Z95.5 Presence of coronary angioplasty implant and graft; K74.60 Unspecified cirrhosis of liver; G89.29 Other chronic pain; Z68.24 Body mass index [BMI] 24.0-24.9, adult; E11.22 Type 2 diabetes mellitus with diabetic chronic kidney disease; E11.51 Type 2 diabetes mellitus with diabetic peripheral angiopathy without gangrene; E78.5 Hyperlipidemia, unspecified; Z79.02 Long term (current) use of antithrombotics/antiplatelets; Z79.82 Long term (current) use of aspirin; Z79.84 Long term (current) use of oral hypoglycemic drugs; Z82.49 Family history of ischemic heart disease and other diseases of the circulatory system; E11.42 Type 2 diabetes mellitus with diabetic polyneuropathy; I25.2 Old myocardial infarction; K59.00 Constipation, unspecified; Z79.899 Other long term (current) drug therapy; Z87.891 Personal history of nicotine dependence; Z60.2 Problems related to living alone
CPT/HCPCS: 36415; 36600; 70450; 71045; 73600; 76881; 76942; 80048; 80053; 80307; 80320; 81001; 82805; 82962; 83036; 83735; 84484; 84550; 85025; 85610; 85652; 85730; 86141; 86431; 87081; 93005; 93926; 93970; 97110; 97116; 97163; 97530; G0378; J1815